=== PATIENT | female | born 1975 | race Caucasian/White ===

== ENCOUNTER 2021-07-01 17:19 | Emergency (ER) | payer BC, SELFPAY ==
[2021-07-01 17:34] VITALS: BP 119/76; PULSE 65; TEMP 36.2; O2SAT 97
--- NOTE | 2021-07-01 18:00 | DI.RAD_ITS ---
Exam(s) XR HAND RT COMPLETE EXAM: XR HAND RT COMPLETE CLINICAL HISTORY: pain dog bite TECHNIQUE: COMPARISON: No exams were available for comparison FINDINGS: Three views were obtained. There is no evidence of acute fracture or dislocation. A tiny defect see n in the tuft of the distal phalanx of the index finger is probably developmental, however clinical c orrelation is requested to exclude any trauma at this site. IMPRESSION: RADIATION DOSE DELIVERED: Total DLP
--- NOTE | 2021-07-01 18:00 | W.ED.GENAD ---
Discharge Plan Disposition Patient Disposition: HOME Discharge Details Clinical Impression: Dog bite Primary Care Provider: Meera Lopez ED Provider: Stevenson Steiner Home Meds and New Rx's Prescriptions: New amoxicillin-pot clavulanate [Augmentin] 500-125 mg tablet 1 tab PO BID Qty: 14 0RF No Action cranberry supp 0RF ginkgo biloba [Ginkoba] 40 mg Tablet 40 mg PO DAILY 0RF Discharge Instructions Instructions: Animal Bite (ED) Additional Instructions: Elevate the hand as much as possible Use the Jose Ramon wrap for support and comfort take Tylenol or Motrin for the pain Take antibiotic as prescribed Medical Decision Making Vrad interpretation of the x-ray was reviewed. The [facility] lesion described does not correlate clinically HPI General Date/Time Provider Initiated Documentation: 07/01/21 17:44. HPI Narrative: 45-year-old lady presents to the emergency room for evaluation of right hand pain secondary to dog bite. 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 Her right hand. She sustained 2 small puncture wounds on the ulnar aspect is neuro aspect. Immediately following the bite she was able to move wrist and allher digits. normal sensation. no bleeding Patient has vaccination Better with ice and immobilization. Patient states she is up-to-date Related Data Home Medications Medication Instructions Recorded Confirmed Cranberry Supp 05/25/16 amoxicillin 500 mg-potassium 1 tab PO BID #14 tab 07/01/21 clavulanate 125 mg tablet (Augmentin) ginkgo biloba 40 mg tablet 40 mg PO DAILY 07/01/21 07/01/21 Previous Rx's Medication Instructions Recorded amoxicillin 500 mg-potassium 1 tab PO BID #14 tab 07/01/21 clavulanate 125 mg tablet (Augmentin) Allergies Allergy/AdvReac Type Severity Reaction Status Date / Time apple AdvReac Intermediate tingling Unverified 07/01/21 17:39 and rash in mouth General Stated Complaint: AnimalBite MARIN: 4 Review of Systems Narrative: MSK see HPI Skin see hpi Neuro see hpi hematolgic see hpi immuno neg PFSH All Active Problems (Updated 07/01/21 @ 19:12 by Stevenson Steiner MD) Dog bite (Acute) Family History Father Diabetes Heart disease Myocardial infarction Mother Essential hypertension Hyperlipidemia Daughter No problems noted. Social History Smoking/Tobacco Use Status: Never Smoking risk assessment performed?: Yes Alcohol Intake: current Alcohol Intake frequency: holidays/special occasions only Drug use: Never Do you feel safe at home: Yes Do you feel safe in your relationship?: Yes Exam Narrative Exam Narrative: AA Ox3 Calmmild discomfort MMMPERLA EOMI RESP normal WOB Rt HAnd - abrasion on the palmar area laterally and medially Digits intact FROM normal senation mild swlling of the palmar area laterally,nocrepitis wrist - intact Course X-ray of the right hand does not reveal any fractures or foreign bodies. X-ray interpreted by me. Repeat eval reveals increased swelling. Dorsal aspect of the hand/palmar aspect. Examination confirms superficial abrasions. Wound will be cleaned. 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/01/21 17:34 PAWSS Have you Been Recently Intoxicated or Drunk Within the Last 30 days?: No Have you Ever Experienced Previous Episodes of Alcohol Withdrawal?: No Have you ever Experienced Withdrawal Seizures?: No Have you ever Experienced Delirium Tremens(DT)s?: No Have you ever undergone Alcohol Rehabilitation Treatment (i.e, inpt ot outpatient treatment programs)?: No Have you ever Experienced Blackouts?: No Have you ever Combined Alcohol with other Downers within the last 90 days?: No Have you ever Combined Alcohol with any other Substance of Abuse during the last 90 days?: No Positive Blood Alcohol level on Presentation? [PCS.BAL]: No Evidence of Increased Autonomic Activity (i.e. HR>120, tremor, sweating, agitation, nausea)?: No Result: 0
[2021-07-01] MEDS: Ibuprofen 800 MG TAB PO (18:10)
--- NOTE | 2021-07-01 19:21 | DI.VRAD_ITS ---
PROCEDURE INFORMATION: Exam: XR Right Hand Exam date and time: 07/01/2021 6:39 PM Age: 45 years old Clinical indication: Injury or trauma; Puncture; Injury date: 07/01/21; Injury details: Dog bite right hand TECHNIQUE: Imaging protocol: XR Right hand. Views: 3 or more views. COMPARISON: No relevant prior studies available. FINDINGS: Bones/joints: There is a notch /cortical irregularity within the distal tuft of the 2nd digit which should be correlated with any concern for trauma or infection to this region. This is best appreciated on series 4, image 1. Soft tissues: No radiopaque foreign body identified. IMPRESSION: 1. There is a notch /cortical irregularity within the distal tuft of the 2nd digit which should be correlated with any concern for trauma or infection to this region. This is best appreciated on series 4, image 1. 2. No radiopaque foreign body identified. Dictated and Authenticated by: Pooja Doyle MD. Ordering:VLADISLAV Gamino MD
--- NOTE | 2021-07-01 19:44 | NUR.NOTE ---
Animal Bite Report Form faxed to [facility] Clerk's office. Nursing Note:
== END 2021-07-01 19:40 | disposition home or self-care (01) ==
PROVIDERS: Emergency Provider Emergency Medicine; PCP Family Medicine
DX: S61.451A Open bite of right hand, initial encounter (principal); W54.0XXA Bitten by dog, initial encounter
CPT/HCPCS: 99283; 73130

== ENCOUNTER → 2021-09-02 11:01 | Outpatient (CLI) | payer BC, SELFPAY ==
--- OUTSIDE RECORDS SUMMARY | 2021-09-02 11:10 | XMS_ITS | Encounter Summary ---
:1975 Author Organization [facility] [place] [address] Care Team Providers Name Role Phone Ulysses Reza MD Primary Care Provider Reason for Visit Reason Onset Date Comments Results 08/31/2015 Encounter Details Date Type Department Care Team Description 08/31/2015 Telephone Obstetrics and Gynecology at [facility] Joe corona [facility] Results [facility] Aruna wills OBSTETRICS & [place] [address] [place] [address] [phone] (Wo rk) Social History Tobacco Use Types Packs/Day Years Used Date Never Smoker Sex Assigned at Date Recorded Not on file documented as of this encounter Miscellaneous Notes Telephone Encounter - Joe Gong LGC - 08/31/2015 12:19 PM EDT Genetic Counseling Telephone Note Kitty Ingram is a 39 y.o. female currently at 16w1d gestation. She opted for amniocentesis on 08/27/2015 due to a at high risk for trisomy 21 based on cell-free DNA screening. I informed her of the following result by phone today: InSight Analysis (aneuploidy FISH): Pattern consistent with trisomy 21. sex: Not disclosed Kitty has made the difficult decision to terminate the . She requests a D&E. I informed her of the following plan: Future Appointments Date Time Provider Visit Type Department 09/02/2015 8:00 AM Barbara Hall, PASSENGER CAR CONDUCTOR Consent/H&P Leb ObGyn 5L 09/02/2015 3:00 PM Jerome Lezama MD Laminaria Leb ObGyn 5L 09/03/2015 TBD Merced Dyson MD D&E Leb Same Day 4W I informed Kitty's referring provider, Carmen Alfred CNM, of the results and plan outlined above. I will follow up with Kitty when the karyotype is available. documented in this encounter Plan of Treatment Not on filedocumented as of this encounter Visit Diagnoses Not on filedocumented in this encounter Care Teams Dry Room Attendant Relationship Specialty Start Date End Date Ulysses Reza MD PCP - General 01/18/10 07/20/16 [address] [place] [address] documented as of this encounter
--- OUTSIDE RECORDS SUMMARY | 2021-09-02 11:10 | XMS_ITS | Clinical Summary ---
:1975 Author Organization [facility] [place] [address] Care Team Providers Name Role Phone Kitty Castellanos APRN Primary Care Provider Allergies No known active allergies Medications Medication Sig Dispensed Refills Start Date End Date Status PNV95/FERROUS FUMARATE/FA Take by mouth. 0 Active ( ORAL)Indications: Abnormal multiple marker screen in fetus DOCOSAHEXANOIC ACID (DHA Take by mouth. 0 Active ORAL) Active Problems Problem Noted Date Fibroid uterus 09/02/2015 Resolved Problems Problem Noted Date Resolved Date anomaly 09/03/2015 09/14/2015 Trisomy 21 of fetus, current 09/02/2015 0 09/14/2015 Family History Medical History Relation Comments Congenital Anomalies Brother absence of the vas deferens, cystic fibrosis carrier Down Syndrome Daughter mosaic trisomy 21 Diabetes Father Heart Disease Father Myocardial Infarction Father Hyperlipidemia Mother Hypertension Mother Thyroid Disease Mother Heart Disease Paternal Grandfather Heart Disease Paternal Grandmother Loss Paternal Grandmother nine second/third t rimester losses Relation Status Comments Brother Alive Daughter Alive Father Mother Alive Paternal Grandfather Paternal Grandmother Son 1 Alive Son 2 Alive Social History Tobacco Use Types Packs/Day Years Used Date Never Smoker Smokeless Tobacco: Never Used Alcohol Use Standard Drinks/Week Comments No 0 (1 standard drink = 0.6 oz pure alcoho l) Sex Assigned at Date Recorded Not on file Last Filed Vital Signs Vital Sign Reading Time Taken Comments Blood Pressure 112/72 04/05/2016 12:23 PM EST Pulse 96 09/03/2015 5:00 PM EDT Temperature 36.6 ??C (97.9 ??F) 09/03/2015 5:00 PM EDT Respiratory Rate 18 09/03/2015 5:00 PM EDT Oxygen Saturation 99% 09/03/2015 5:00 PM EDT Inhaled Oxygen Concentration - - Weight 65.9 kg (145 lb 3.2 oz) 04/05/2016 12:23 PM EST Height 167.6 cm (5' 6) 09/03/2015 9:04 AM EDT Body Mass Index 23.44 09/03/2015 9:04 AM EDT Plan of Treatment Health Maintenance Due Date Last Done Comments Covid-19 Vaccine (#1) 11/03/1980 HIV screen 11/03/1993 Hepatitis C Screening 11/03/1993 Tdap adult 11/03/1994 Tetanus vaccine 11/03/1994 HPV test 11/03/2005 Breast Cancer Share Decision 2015 Needed PAP Smear 05/14/2016 05/15/2011, 11/12/2009, 10/06/2008, Additional history exists Colonoscopy 11/03/2020 Influenza (Flu) vaccine ( - 10/27/2021 Influenza standard series) Insurance Payer Benefit Plan Subscriber ID Effective Dates Phone Address Type / Group [facility] [id number] 2020-Presen [phone] [address] [facility] [address] [facility] [id number] (Work) [id number] Advance Directives Latest Code Status on File Code Status Date Activated Date Inactivated Comments Full Code 09/03/2015 1:53 PM 09/03/2015 10:52 PM Does patient have capacity to make decision: Yes Full Code 09/03/2015 9:56 AM 09/03/2015 1:53 PM Does patient have capacity to make decision: Yes Care Teams Clinic Manager Relationship Specialty Start Date End Date Kitty Castellanos APRN PCP - General Family Medicine 09/23/20 [address] [place] [address]
--- OUTSIDE RECORDS SUMMARY | 2021-09-02 11:10 | XMS_ITS | Encounter Summary ---
:1975 Author Organization [facility] [place] [address] Care Team Providers Name Role Phone Ulysses Reza MD Primary Care Provider Reason for Visit Reason Comments Procedure LAMS Encounter Details Date Type Department Care Team Description 09/02/2015 Procedure visit Obstetrics and Kendy Ornelas Triso my 21 of fetus, current ; Gynecology at [facility] Termination of (fetus) [facility] ID OBSTETRICS & [id number] GYNECOLOGY [phone] [place] [id number] Social History Tobacco Use Types Packs/Day Years Used Date Never Smoker Alcohol Use Standard Drinks/Week Comments No 0 (1 standard drink = 0.6 oz pure alcoho l) Sex Assigned at Date Recorded Not on file documented as of this encounter Last Filed Vital Signs Vital Sign Reading Time Taken Comments Blood Pressure 117/84 09/02/2015 4:30 PM EDT Pulse 72 09/02/2015 4:30 PM EDT Temperature 37 ??C (98.6 ??F) 09/02/2015 4:03 PM EDT Respiratory Rate 12 09/02/2015 4:30 PM EDT Oxygen Saturation 100% 09/02/2015 4:03 PM EDT Inhaled Oxygen Concentration - - Weight - - Height - - Body Mass Index - - documented in this encounter Progress Notes Kendy Ornelas MD - 09/03/2015 12:40 PM EDT I was present and participated during the entire procedure. KENDY ORNELAS MD En Saeed LPN - 09/02/2015 4:36 PM EDT Azithromycin 500mg PO is administered prior to the start of the procedure. Aftercare instructions reviewed with and provided to pt. documented in this encounter Procedure Notes Chastity Negrete MD - 09/02/2015 2:51 PM EDTProcedure(s): INSERT CERVICAL DILATOR PRFM Pre-Procedure Diagnose(s): Trisomy 21 of fetus, current Procedure Note: HPI: Kitty Ingram is a 39 y.o. at 16w3d who presents for laminaria placement prior to a D&C for Trisomy 21. She had difficulty making this decision, but this is what she needs to do for her family. She saw Barbara earlier today for an H&P, please see her note for more details. She has already received rhogam this . She was consented with Barbara Hall. Procedure: Consent was confirmed for laminaria insertion. Brief procedural timeout was held to confirm her identity. Bimanual exam revealed a 15 week size anteverted uterus. The cervix was cleansed with betadine swabs. A paracervical block of 20mL 1% lidocaine was administered at 12, 4 and 8 o'clock. A single-toothed tenaculum was used to grasp the cervix at 12 o'clock. 1x 8 mm laminaria and 2x 4mm dilapan wereinserted without difficulty. Total= 3 dilators, 16 mm. One gauze sponge was inserted to stabilize them. She tolerated the procedure well. Assessment and Plan: Kitty Ingram is a 39 y.o. at 16w3d by LMP who presented for laminaria placement prior toD&C for fetus with Trisomy 21. She was given 500mg Azithromycin for procedural prophylaxis. Her blood type is O negative and she has already received rhogam this . She will return tomorrowfor D & C. No further questions. CHASTITY NEGRETE MD PGY4 09/02/2015 Dr. Kendy Ornelas was present for the entire procedure without any conflicting clinical responsibility documented in this encounter Plan of Treatment Not on filedocumented as of this encounter Visit Diagnoses Diagnosis Trisomy 21 of fetus, current Termination of (fetus) documented in this encounter Administered Medications Inactive Administered Medications - up to 3 most recent administrations Medication Order MAR Action Action Date Dose Rate Site azithromycin (ZITHROMAX) tablet Given 09/02/2015 4:15 PM EDT 500 mg 500 mg 500 mg, Oral, ONCE, 1 dose, On Ivette 09/02/15 at 1615, Routine documented in this encounter Care Teams Compressed Gas Equipment Mechanic Relationship Specialty Start Date End Date Ulysses Reza MD PCP - General 01/18/10 07/20/16 [address] [place] [address] documented as of this encounter
--- OUTSIDE RECORDS SUMMARY | 2021-09-02 11:10 | XMS_ITS | Encounter Summary ---
:1975 Author Organization [facility] [place] [address] Care Team Providers Name Role Phone Ulysses Reza MD Primary Care Provider Encounter Details Date Type Department Care Team Description 08/27/2015 Clinical Support Obstetrics and [facility] OUS ENCOUN[place] [address] Social History Tobacco Use Types Packs/Day Years Used Date Never Smoker Sex Assigned at Date Recorded Not on file documented as of this encounter Progress Notes Caryn Huntley - 08/27/2015 10:45 AM EDT Encounter opened in error and documents scanned in. documented in this encounter Plan of Treatment Not on filedocumented as of this encounter Procedures Procedure Name Priority Date/Time Associated Diagnosis Comme nts LAB SCAN 09/08/2015 12:00 AM EDT documented in this encounter Results SCAN DOC: LAB (09/08/2015 12:00 AM EDT) Narrative This result has an attachment that is no t available. Scanning Provider MEDIA MGR SCAN EXT ORDR/RSLT documented in this encounter Visit Diagnoses Diagnosis DH ERRONEOUS ENCOUNTER documented in this encounter Care Teams Exec. Creative Director Relationship Specialty Start Date End Date Ulysses Reza MD PCP - General 01/18/10 07/20/[address] [place] [address] documented as of this encounter
--- OUTSIDE RECORDS SUMMARY | 2021-09-02 11:10 | XMS_ITS | Encounter Summary ---
:1975 Author Organization [facility] [place] [address] Care Team Providers Name Role Phone Taniya Wright MD Primary Care Provider Encounter Details Date Type Department Care Team Description 10/06/2008 Orders Only Radiology and Cardiology Apd Conversion, Results Results Provider, [address] [place] [id number] Social History Tobacco Use Types Packs/Day Years Used Date Never Assessed Sex Assigned at Date Recorded Not on file documented as of this encounter Plan of Treatment Not on filedocumented as of this encounter Procedures Procedure Name Priority Date/Time Associated Diagnosis Comme nts CYTOPATHOLOGY Routine 10/06/2008 Results for th is GYNECOLOGICAL procedure are in the results section . documented in this encounter Results (ABNORMAL) Cytopathology Gynecological (10/06/2008) [facility] Method Time Signature Medical Secretary Teacher Cytology Please see GEORGIE LOPEZ Final Report Georgie SANTANA legacy report (External Lab) Specimen (Source) Anatomical Location Collection Method / Collectio n Time Received Time / Laterality Volume 10/06/2008 Narrative GEORGIE CAMACHO CONVERSION - 10/12/2008 Please see Georgie Lopez Legacy report Results Provider Apd Conversion PATHOLOGY/CYTOLOGY ORDERABLES Performing Organization Address City/State/ZIP Code Phon e Number GEORGIE LOPEZ CONVERSION [address] [place], [place] [address] GEORGIE LOPEZ CONVERSION documented in this encounter Visit Diagnoses Not on filedocumented in this encounter Care Teams Director Operating Relationship Specialty Start Date End Date Taniya Wright MD PCP - General Family Medicine 06/13/17 09/22/20 [address] [place] [address] documented as of this encounter
--- OUTSIDE RECORDS SUMMARY | 2021-09-02 11:10 | XMS_ITS | Encounter Summary ---
:1975 Author Organization [facility] Address [facility] [address] [place] [address] Care Team Providers Name Role Phone Ulysses Reza MD Primary Care Provider Reason for Visit Reason Comments Advanced Maternal Age [age] years old at [facility] Positive Screen For Down Syndrome Cell-free DNA screen ing ([place]) high risk for trisomy 21 Consultation (Routine) - Closed Specialty Diagnoses / Procedures Referred By Contact Refer red To Contact Genetics / Obstetrics Diagnoses MATERNAL AGE, POSITIVE HARMONY FOR DS, WANTS AMNIO Carmen Alfred [facility] c Death Claim Clerk 5l and Gynecology Procedures FULL SLOT N[facility] [address] [place] [address] [place] [id number] Referral ID Status Reason Start Date Expiration Date Visits Requ ested Visits Authorized [id number] Closed 08/10/2015 08/09/2016 2 2 Encounter Details Date Type Department Care Team Description 08/27/2015 Office Visit Obstetrics and Joe Gong M, Materna l age 35+, multigravida, second trimester; Gynecology at [facility] Abnormal finding on screen; [facility] arun for genetic counseling Drive DR Knapp [place] OBSTETRICS & [phone] GYNECOLOGY [phone] [place] 0375 Social History Tobacco Use Types Packs/Day Years Used Date Never Smoker Sex Assigned at Date Recorded Not on file documented as of this encounter Progress Notes Maribeldelmy Joe Carrillo, [facility] - 08/27/2015 12:00 PM EDT Genetic Counseling Note Kitty Ingram is a 39 y.o. female currently at 15w4d gestation. She was referred to the Diagnosis Program by Carmen Alfred CNM. I met with Kitty for a 45 minute genetic counseling visit. She was accompanied to the visit by her partner, Kojo Matamoros. Chief Complaint Patient presents with ??? Advanced Maternal Age [age] years old at [facility] ??? Positive Screen For Down Syndrome Cell-free DNA screening ([place]) high risk for trisomy 21 Medical History History reviewed. No pertinent past medical history. Family History Problem (# of Occurrences) Relation (Name,Age of Onset) Congenital Anomalies (1) Brother: absence of the vas deferens, cystic fibrosis carrier Diabetes (1) Father Down Syndrome (1) Daughter (Cezar): mosaic trisomy 21 Heart Disease (1) Father Hyperlipidemia (1) Mother Hypertension (1) Mother Myocardial Infarction (1) Father Loss (1) Paternal Grandmother: nine second/third trimester losses A pedigree was obtained and will be scanned into Kitty's electronic medical record. Obstetric History T3 TAB0 SAB1 E0 M0 L3 # Outcome Date GA Lbr Ruy/2nd Weight Sex Delivery Anes PTL Lv 5 Current 4 02/2015 8w0d 3 Term 08/28/07 40w0d 3.629 kg (8 lb) M Vag-Spont None Y Name: Oscar 2 Term 09/05/05 42w0d 3.6 kg (7 lb 15 oz) M Vag-Spont None Y Name: Donavon 1 Term 08/26/03 39w0d 2.977 kg (6 lb 9 oz) F Vag-Spont None N Y Name: Cezar Patient's last menstrual period was 05/10/2015. Estimated Date of Delivery: 02/14/2016 based on menstrual dating and confirmed by ultrasound (10w0d on 07/16/2015). Screening Results Test Result ??? [place] screen High risk for trisomy 21. Low risk for trisomy 18, trisomy 13, and sex chromosome aneuploidy. sex reported but not disclosed. ??? Cystic fibrosis carrier screen Negative per patient (report not available for review). ??? Thalassemia screen MCV within normal limits (90.3 fL) Assessment The [place] test is a type of cell-free DNA screening for aneuploidy. The test report indicates thatthe probability of trisomy 21 is greater than 99%. Since the source of cell-free DNA is actually the placenta, this can be considered an estimate of the probability that trisomy 21 is present in the placenta. If we take into account Kitty's age-related a priori risk along with the performanceof the test, the positive predictive value of this result is at least 93%%. False positive results can be related to factors such as mosaicism (maternal or placental) or a vanishing twin. Kitty daughter has mosaic trisomy 21. Mosaicism can be the result of trisomy rescue of an aneuploidzygote or postzygotic chromosome missegregation. In the former case, the sibling recurrence risk would be increased. Recurrence of trisomy in the same couple could occur for several reasons: (1) chancealone, due to the maternal age-associated risk, (2) parental gonadal mosaicism for trisomy, or (3) factors associated with an increased risk of meiotic error. We discussed the benefits, risks, and limitations of morphology ultrasound and amniocentesis. At the current gestational age, ultrasound examination is expected to be limited, and amniocentesis may not be possible due to chorioamniotic separation (this finding is more common with aneuploidy). Kitty requests amniocentesis. We reviewed the consent form and post-procedural instructions. Amniotic fluid will be sent for Insight analysis (aneuploidy FISH), chromosome analysis, and AFP analysis. Kitty is leaning towards termination if the diagnosis of trisomy 21 is confirmed. We reviewed the options of induction and D&E. At the time of a previous telephone conversation, Kitty thought that she would prefer induction. However, after learning that the risks of both procedures arecomparable, Kitty would rather have a D&E because she would prefer to be asleep. Plan Kitty is scheduled for a morphology ultrasound and maternal- medicine consultation following our visit today. She requests amniocentesis. documented in this encounter Plan of Treatment Not on filedocumented as of this encounter Results Insight Analysis Amniotic Fluid (08/27/2015 11:32 AM EDT) Analysis Performed At Patho logist Time Signature Insight Amn See Note [facility] LABORATORY Comment: Please see scanned report in Ch art Review under the Non- Laboratory Heading. Specimen Anatomical Collection Method Collection Time Receive d Time (Source) Location / / Volume Laterality Amniotic fluid 08/27/2015 11:32 6 specimen AM EDT 12:31 PM EDT (specimen) Narrative This result has an attachment that is no t available. Resulting Agency Comment Spec In Lab E Alfreda Woodward MD BODY FLUIDS AND STOOLS ORDER BILL Performing Organization Address City/[facility] Code Phon e Number [address] Chromosome Analysis Amniotic Fluid (08/27/2015 11:32 AM EDT) Patholo gist Method Time Signature Chromosome Amn See Note [facility] Comment: Please see scanned report in Chart Revie w under the Non- Laboratory Heading. Testing performed at [facility], [address] [facility], [place] [address]. Specimen Anatomical Collection Method Collection Time Receive d Time (Source) Location / / Volume Laterality Amniotic fluid 08/27/2015 11:32 6 specimen AM EDT 12:31 PM EDT (specimen) Narrative This result has an attachment that is no t available. Resulting Agency Comment Spec In Lab E Alfreda Woodward MD BODY FLUIDS AND STOOLS ORDER BILL Performing Organization Address City/[facility] Phon e Number [address] Alpha Fetoprotein, Amniotic Fluid (08/27/2015 11:32 AM EDT) Analysis Performed At Patho logist Time Signature Week Gestation 16 week(s) [facility] AFP Amniotic 7.04 mcg/mL [facility] LABORATORY Mult of Median 0.52 [facility] AFP Amniotic See Note See Note DIANE TAMIR Fluid Interp [facility] Comment: Please see scanned report in Chart Revie w under the Non-DH Laboratory Heading. Testing performed at [facility], [address] [place] [address]. Specimen Anatomical Collection Method Collection Time Receive d Time (Source) Location / / Volume Laterality Amniotic fluid 08/27/2015 11:32 6 specimen AM EDT 12:31 PM EDT (specimen) Narrative This result has an attachment that is no t available. Resulting Agency Comment Spec In Lab E Alfreda Woodward MD BODY FLUIDS AND STOOLS ORDER BILL Performing Organization Address City/State/[place] [address] documented in this encounter Visit Diagnoses Diagnosis Maternal age 35+, multigravida, second t rimester Abnormal finding on screen Abnormal findings on screening Encounter for genetic counseling Genetic counseling documented in this encounter Care Teams Iron Plastic Bullet Maker Relationship Specialty Start Date End Date Ulysses Reza MD PCP - General 01/18/10 07/20/16 [address] [place] [address] documented as of this encounter
--- OUTSIDE RECORDS SUMMARY | 2021-09-02 11:10 | XMS_ITS | Encounter Summary ---
:1975 Author Organization [facility] [address] Care Team Providers Name Role Phone Ulysses Reza MD Primary Care Provider Reason for Visit Reason Comments Ultrasound Consultation (Routine) - Closed Specialty Diagnoses / Procedures Referred By Contact Refer red To Contact Maternal and Diagnoses maternal age, prev preg trisomy 21 LeAnastacia gilmore G, CNM [facility] [employer] 5l Medicine / Obstetrics Procedures u/s mfm, [address] [facility] and Gynecology [facility] [id number] [place] [phone] Phone: Fax: Referral ID Status Reason Start Date Expiration Date Visits Requ ested Visits Authorized [id number] Closed 03/30/2016 03/30/2017 1 1 Encounter Details Date Type Department Care Team Description 04/05/2016 Procedure visit Obstetrics and Dipti Arias, Kanga l US; [place] [facility] Previous complicated by chromo somal abnormality, antepartum, second trimester; [facility] AMA (adva nced maternal age) multigravida 35+, second trimester; [facility] Echogenic focus of bowel of fetus affect ing antepartum care of mother [place], [place] OBSTETRICS & [phone] GYNECOLOGY [phone] [place], [place] [address] Social History Tobacco Use Types Packs/Day Years Used Date Never Smoker Alcohol Use Standard Drinks/Week Comments No 0 (1 standard drink = 0.6 oz pure alcoho l) Sex Assigned at Date Recorded Not on file documented as of this encounter Last Filed Vital Signs Vital Sign Reading Time Taken Comments Blood Pressure 112/72 04/05/2016 12:23 PM EST Pulse - - Temperature - - Respiratory Rate - - Oxygen Saturation - - Inhaled Oxygen Concentration - - Weight 65.9 kg (145 lb 3.2 oz) 04/05/2016 12:23 PM EST Height - - Body Mass Index 23.44 09/03/2015 9:04 AM EDT documented in this encounter Progress Notes Dpiti Arias MD - 04/05/2016 1:30 PM EST Maternal Medicine Consult Note Chelly Ingram is a 40 y.o. with an AMANUEL of 09/04/16 who is at 18w2d gestation by menstrual dates and ultrasound. She is seen in consultation at the request of Anastacia Rhodes CNM for evaluation ofadvanced maternal age and prior complicated by trisomy 21. She was seen today for maternal- medicine consultation and ultrasound evaluation. The patient reports that this has been uncomplicated to date. She has not had bleeding. The patient had cell free DNA testing which was low risk for trisomy 21, 18 and 13. Her records indicated that she previously had cystic fibrosis screening which was negative. Record Review No additional issues Past Medical History Diagnosis Date ??? Other abnormal Papanicolaou smear of cervix and cervical HPV(795.09) 2010 +HPV; colpo negative ??? Varicella Past Surgical History Procedure Laterality Date ??? Tympanostomy tube placement as a child ??? Pro induced abortn by dil/evac N/A 09/03/2015 INDUCED , DILATION & EVACUATION performed by Merced Miller MD at [facility] OR Obstetric History T3 TAB1 SAB1 E0 M0 L3 # Outcome Date GA Lbr Ruy/2nd Weight Sex Delivery Anes PTL Lv 6 Current 5 TAB 09/03/15 16w4d TAB 4 SAB 02/2015 8w0d 3 Term 08/28/07 40w0d 3.629 kg (8 lb) M Vag-Spont None Y Name: Oscar Clement Term 09/05/05 42w0d 3.6 kg (7 lb 15 oz) M Vag-Spont None Y Name: Donavon Cooper Term 08/26/03 39w0d 2.977 kg (6 lb 9 oz) F Vag-Spont None N Y Name: Cezar Gutierres: Is employed as a community coordinator for high school. Denies illicit substance use or alcohol No tobacco use Current Outpatient Prescriptions Medication Sig Dispense Refill ??? DOCOSAHEXANOIC ACID (DHA ORAL) Take by mouth. ??? PNV95/FERROUS FUMARATE/FA ( ORAL) Take by mouth. No current facility-administered medications for this visit. No Known Allergies Review of Systems Constitutional: generally well Contractions: none Leaking: none Bleeding: none Ultrasound Growth appropriate for gestational age EGA 17 6/7 weeks Amniotic fluid volume normal Placenta anterior Presentation variable Morphology: There is a segment of echogenic bowel. No other structural abnormality or marker for aneuploidy. Physical Exam Vitals: 04/05/16 1223 BP: 112/72 General: alert, well appearing, in no apparent distress HEENT: normocephalic, atraumatic Extremities: normal Neurologic:alert, oriented, normal speech Abdomen: abdomen is soft without significant tenderness Psychiatric: affect is appropriate. Uterine Size: consistent with dates Assessment and Recommendations: 40 y.o. at 18w3d weeks gestation. Previous history of with trisomy 21 and another child with mosaic trisomy 21. Her risk foraneuploidy is very low based on the [place] screen. There is a segment of echogenic bowel which is aminor marker for aneuploidy and a manifestation of cystic fibrosis and congenital infection including cytomegalovirus and toxoplasma. Her risk for aneuploidy and cystic fibrosis should be low based on genetic screening. We will try to find the cystic fibrosis screen result to see the number of mutations screened for. I explained the manifestations of congenital cytomegalovirus and toxoplasmosis. I offered serology screening. I explained that serology can sometimes be difficult to interpret. I also offered amniocentesis for PCR for these infections. Today, she opted to proceed with serology testing for CMV and toxoplasma. We will contact her with these results. I appreciate the opportunity to be involved in this patient's care and am available if further questions should arise. Dipti Arias MD 04/06/2016 Cc: Anastacia Rhodes CNM Addendum: We would like to her back at approximately 32 weeks to reevaluate the bowel. We will call her. ERIC documented in this encounter Miscellaneous Notes Addendum Note - Dipti Arias MD - 04/07/2016 3:04 PM EST Addended by: DIPTI ARIAS on: 04/07/2016 03:04 PM Modules accepted: Orders documented in this encounter Plan of Treatment Not on filedocumented as of this encounter Procedures Procedure Name Priority Date/Time Associated Comments Diagnosis US OB FOLLOW UP Routine 07/12/2016 3:45 PM Echogenic focus of Results for this EDT bowel of fetus procedure are in affecting the results antepartum care of section. mother CMV ANTIBODY, IGM Routine 04/05/2016 2:48 PM Abnormal pregnanc y Results for this EST US procedure are i n the results section. TOXOPLASMA ANTIBODY, Routine 04/05/2016 2:48 PM Abnormal pregn husam Results for this IGM EST US procedure are i n the results section. TOXOPLASMA ANTIBODY, Routine 04/05/2016 2:48 PM Abnormal pregn husam Results for this IGG EST US procedure are i n the results section. CMV ANTIBODY, IGG Routine 04/05/2016 2:48 PM Abnormal pregnanc y Results for this EST US procedure are i n the results section. documented in this encounter Results US OB Follow Up Evaluation (07/12/2016 3:45 PM EDT) Anatomical Region Laterality Modality Pelvis, Abdomen Ultrasound Specimen (Source) Anatomical Collection Method Collection Time Re ceived Time Location / / Volume Laterality 07/12/2016 3:25 PM EDT Impressions 07/12/2016 4:40 PM EDT 3rd Trimester Summary Single intrauterine with a ge stational age of 32w 2d based on LMP ??(11/29/15) Composite age based on the current ultr asound alone is 33w 2d. Estimated weight corresponds to t he 90th percentile for 32w 2d. Current growth parameters are consisten t with prior dating indicating normal growth. Amniotic fluid volume is Normal, JANIE = 11.24 cm, MVP = 4.49 cm Anatomical survey is limited due to the late gestational age, however appears within normal limi ts. I ??viewed the images and agree with th jd above interpretation. ? Jd Woodward MD Electronically Signed Final Report ?? 04:40 pm Narrative 07/12/2016 4:40 PM EDT OBSTETRICS REPORT ?(Signed Final 07/12/2016 04:40 pm) PATIENT INFO: ID #: ? [id number] ?: ??[birth year] (40 yrs) Name: ? CHELLY Carrillo ? Visit Date: 07/12/2016 03:25 pm ? LOLA PERFORMED BY: Performed By: ? Nette Gallardo RDMS Attending: ?Jd Woodward MD ? ?Alfreda Referred By: ?ANASTACIA RHODES CNM Location: ? [facility] SERVICE(S) PROVIDED: ??UOBFOL - Efw - Growth - Whitney - I [id number] ? [id number] INDICATIONS: ??Echogenic bowel, Referred by Anastacia Rivera leonel OB HISTORY: Height: ? 5'6 ?Weight: ?? 1 38 ?BMI: ??22.27 EVALUATION: Num Of Fetuses: ? 1 Heart ? 130 Rate(bpm): Cardiac Activity: ?? Observed, normal r hythm Presentation: ? Cephalic Placenta: ? Anterior P. Cord Insertion: ??Within Normal Limi ts Amniotic Fluid JANIE FV: ?Normal JANIE Sum: ? 11.24 ?? cm ? Larg Pckt: ?4.49 ??cm RUQ: ?? 3.87 ?cm ?LUQ: ?? 4.49 ?? cm RLQ: ?? 1.81 ?cm ?LLQ: ?? 1.07 ?? cm --------- BIOMETRY: --------- BPD: ?80.4 ??mm ? G.Age: ?? 32w 2d ?42 ??% OFD: ? 105.5 ??mm HC: ?296.1 ??mm ? G.Age: ?? 32w 5d ?24 ??% AC: ?299.6 ??mm ? G.Age: ?? 34w 0d ?89 ??% FL: ? 65.8 ??mm ? G.Age: ?? 33w 6d ?79 ??% HUM: ?56.3 ??mm ? G.Age: ?? 32w 5d ?61 ??% CER: ?42.7 ??mm ? G.Age: ?? 36w 5d ?> 95 ??% NB: ?11.54 ??mm LV: ?8.0 ??mm CM: ?7.4 ??mm CI: ?76.2 ??% ? 70 - 86 FL/HC: ? 22.2 ??% ? 19.1 - 21.3 HC/AC: ? 0.99 ?0.96 - 1.17 FL/BPD: ?81.8 ??% ? 71 - 87 FL/AC: ? 22.0 ??% ? 20 - 24 Est. FW: ?2240 ?? gm ?? 4 lb 15 oz ? 90 ??% GESTATIONAL AGE: LMP: ? 32w 2d ?Date : ??11/29/15 ? AMANUEL: ?? 09/04/16 U/S Today: ? 33w 2d ?AMANUEL: ?? 08/28/16 Best: ?32w 2d ?? Det. By: ??LMP ??(11/29/15) ?AMANUEL: ?? 09/04/16 -------- ANATOMY: -------- Cranium: ?Visualized Cavum: ?Visualized Ventricles: ? Visualized Choroid Plexus: ? Visualized Cerebellum: ? Visualized Posterior Fossa: ?Visualized Nuchal Fold: ?Not evaluated a t this gestational age Face: ? Limited view s Heart: ?4-chamber vi ew appears normal RVOT: ? Not visualiz ed due to late gestational a LVOT: ? Not visualiz ed due to late gestational a Diaphragm: ?Visualized Stomach: ?Visualized Abdomen: ?Within Normal Limits Abdominal Wall: ? Not visualized du e to late gestational a Cord Vessels: ? 3-vessels- WNL Kidneys: ?Visualized Bladder: ?Visualized Spine: ?Limited view s Upper ? Limited view s Extremities: Lower ? Limited view s Extremities: CERVIX UTERUS ADNEXA: Left Ovary Not visualized Right Ovary Not visualized Procedure Note Jd Woodward MD - 07/12/2016For matting of this note might be different from the original. OBSTETRICS REPORT (Signed Final 017 04:40 pm) PATIENT INFO: ID #: [id number] : [birth year] (40 y rs) Name: CHELLY Carrillo Visit Date: 07/12/2016 0 3:25 pm LOLA PERFORMED BY: Performed By: Nette Gallardo RDMS Attending: Jd Woodward MD Referred By: ANASTACIA RHODSE CNM Location: [facility] SERVICE(S) PROVIDED: UOBFOL - Efw - Growth - Whitney - G [id number] INDICATIONS: Echogenic bowel, Referred by Anastacia Kraft g OB HISTORY: Height: 5'6 Weight: 138 BMI: 22.27 EVALUATION: Num Of Fetuses: 1 Heart 130 Rate(bpm): Cardiac Activity: Observed, normal rhyt hm Presentation: Cephalic Placenta: Anterior P. Cord Insertion: Within Normal Limits Amniotic Fluid JANIE FV: Normal JANIE Sum: 11.24 cm Larg Pckt: 4.49 cm RUQ: 3.87 cm LUQ: 4.49 cm RLQ: 1.81 cm LLQ: 1.07 cm --------- BIOMETRY: --------- BPD: 80.4 mm G.Age: 32w 2d 42 % OFD: 105.5 mm HC: 296.1 mm G.Age: 32w 5d 24 % AC: 299.6 mm G.Age: 34w 0d 89 % FL: 65.8 mm G.Age: 33w 6d 79 % HUM: 56.3 mm G.Age: 32w 5d 61 % CER: 42.7 mm G.Age: 36w 5d > 95 % NB: 11.54 mm LV: 8.0 mm CM: 7.4 mm CI: 76.2 % 70 - 86 FL/HC: 22.2 % 19.1 - 21.3 HC/AC: 0.99 0.96 - 1.17 FL/BPD: 81.8 % 71 - 87 FL/AC: 22.0 % 20 - 24 Est. FW: 2240 gm 4 lb 15 oz 90 % GESTATIONAL AGE: LMP: 32w 2d Date: 11/29/15 AMANUEL: 7 U/S Today: 33w 2d AMANUEL: 08/28/16 Best: 32w 2d Det. By: LMP (11/29/15) ED -------- ANATOMY: -------- Cranium: Visualized Cavum: Visualized Ventricles: Visualized Choroid Plexus: Visualized Cerebellum: Visualized Posterior Fossa: Visualized Nuchal Fold: Not evaluated at this gest ational age Face: Limited views Heart: 4-chamber view appears normal RVOT: Not visualized due to late gestat ional a LVOT: Not visualized due to late gestat ional a Diaphragm: Visualized Stomach: Visualized Abdomen: Within Normal Limits Abdominal Wall: Not visualized due to l ate gestational a Cord Vessels: 3-vessels- WNL Kidneys: Visualized Bladder: Visualized Spine: Limited views Upper Limited views Extremities: Lower Limited views Extremities: CERVIX UTERUS ADNEXA: Left Ovary Not visualized Right Ovary Not visualized IMPRESSION 3rd Trimester Summary Single intrauterine with a ge stational age of 32w 2d based on LMP (11/29/15) Composite age based on the current ultr asound alone is 33w 2d. Estimated weight corresponds to t he 90th percentile for 32w 2d. Current growth parameters are consisten t with prior dating indicating normal growth. Amniotic fluid volume is Normal, JANIE = 11.24 cm, MVP = 4.49 cm Anatomical survey is limited due to the late gestational age, however appears within normal limi ts. I viewed the images and agree with the above interpretation. Jd Woodward MD Electronically Signed Final Report 07/12 04:40 pm Dipti Arias MD IMG US OB ORDERABLES Toxoplasma Antibody, IgM (04/05/2016 2:48 PM EST) athologist Signature Toxoplasma IgM Neg Neg [facility] Specimen Anatomical Collection Method Collection Time Receive d Time (Source) Location / / Volume Laterality Blood specimen 04/05/2016 2:48 PM 017 8:49 (specimen) EST AM EST Resulting Agency Comment Spec In Lab Dipti Arais MD CHEMISTRY ORDERABLES Performing Organization Address City/[facility] [place] [address] Toxoplasma Antibody, IgG (04/05/2016 2:48 PM EST) P athologist Signature Toxoplasma IgG Neg Neg [facility] Specimen Anatomical Collection Method Collection Time Receive d Time (Source) Location / / Volume Laterality Blood specimen 04/05/2016 2:48 PM 017 8:49 (specimen) EST AM EST Resulting Agency Comment Spec In Lab Dipti Arias MD IMMUNOLOGY ORDERABLES Performing Organization Address [facility] [place] [address] CMV Antibody, IgM (04/05/2016 2:48 PM EST) P athologist Signature CMV IgM Neg Neg [facility] Specimen Anatomical Collection Method Collection Time Receive d Time (Source) Location / / Volume Laterality Blood specimen 04/05/2016 2:48 PM 017 8:49 (specimen) EST AM EST Resulting Agency Comment Spec In Lab Dipti Arias MD IMMUNOLOGY ORDERABLES Performing Organization Address City/[facility]/ZIP [facility] [place] [address] CMV Antibody, IgG (04/05/2016 2:48 PM EST) P athologist Signature CMV IgG Neg Neg [facility] Specimen Anatomical Collection Method Collection Time Receive d Time (Source) Location / / Volume Laterality Blood specimen 04/05/2016 2:48 PM 017 8:49 (specimen) EST AM EST Resulting Agency Comment Spec In Lab Dipti Arias MD IMMUNOLOGY ORDERABLES Performing Organization Address City/[facility] [place] [address] documented in this encounter Visit Diagnoses Diagnosis Abnormal US Abnormal findings on screening Previous complicated by chromo somal abnormality, antepartum, second trimester AMA (advanced maternal age) multigravida 35+, second trimester Echogenic focus of bowel of fetus affect ing antepartum care of mother documented in this encounter Care Teams [employer] Management System Operator Relationship Specialty Start Date End Date Ulysses Reza MD PCP - General 01/18/10 07/20/16 [address] [place] [address] documented as of this encounter
--- OUTSIDE RECORDS SUMMARY | 2021-09-02 11:10 | XMS_ITS | Encounter Summary ---
:1975 Author Organization [facility] [place] [address] Care Team Providers Name Role Phone Ulysses Reza MD Primary Care Provider Encounter Details Date Type Department Care Team Description 04/05/2016 Hospital Encounter Radiology at [facility] Pschirrer, E Previous [facility] MD Alfreda complicated by [place], [place] [address] [place], [id number] OBSTETRICS & antepartum, second [phone] [place] [address] Social History Tobacco Use Types Packs/Day Years Used Date Never Smoker Alcohol Use Standard Drinks/Week Comments No 0 (1 standard drink = 0.6 oz pure alcoho l) Sex Assigned at Date Recorded Not on file documented as of this encounter Medications at Time of Discharge Medication Sig Dispensed Refills Start Date End Date DOCOSAHEXANOIC ACID (DHA Take by mouth. 0 ORAL) PNV95/FERROUS FUMARATE/FA Take by mouth. 0 ( ORAL)Indications: Abnormal multiple marker screen in fetus documented as of this encounter Plan of Treatment Not on filedocumented as of this encounter Procedures Procedure Name Priority Date/Time Associated Diagnosis Comme nts US OB DETAILED Routine 04/05/2016 1:45 PM Previous R esults for this MORPHOLOGY EST complicated by procedure are in chromosomal the results abnormality, section. antepartum, second trimester documented in this encounter Results US OB Detailed Morphology (04/05/2016 1:45 PM EST) Anatomical Region Laterality Modality Pelvis, Abdomen Ultrasound Specimen (Source) Anatomical Collection Method Collection Time Re ceived Time Location / / Volume Laterality 04/05/2016 12:48 PM EST Impressions 04/06/2016 7:24 AM EST 2nd Trimester - Detailed Morphology - S ummary Single intrauterine with a ge stational age of 18w 2d based on LMP ??(11/29/15). Composite age based on the current ultr asound alone is 17w 6d. Current growth parameters are consisten t with prior dating indicating normal growth. Amniotic fluid volume is normal. Detailed anatomic evaluation was performed. There is a segment of echogenic bowel. ?Gerardo Negro Electronically Signed Final Report ?? 07:24 am Narrative 04/06/2016 7:24 AM EST OBSTETRICS REPORT ?(Signed Final 04/06/2016 07:24 am) PATIENT INFO: ID #: ? [id number] ?: ??[birth year] (40 yrs) Name: ? CHELLY Carrillo ? Visit Date: 04/05/2016 12:48 pm ? LOLA PERFORMED BY: Performed By: ? Rebecca Cooley RDMS Attending: ?Gilbert SCHWARTZ, Dipti Rossi Referred By: ?NATY PELAYO [facility] Location: ? [place] SERVICE(S) PROVIDED: ??UMFM - Detailed Morphology - [id number] ? [id number] INDICATIONS: ??prev pregnanacy tri 21 OB HISTORY: Height: ? 5'6 ?Weight: ?? 1 38 ?BMI: ??22.27 EVALUATION: Num Of Fetuses: ? 1 Heart ? 147 Rate(bpm): Cardiac Activity: ?? Observed, normal r hythm Presentation: ? Variable Placenta: ? Anterior P. Cord Insertion: ??Within Normal Limi ts Amniotic Fluid JANIE FV: ?Normal --------- BIOMETRY: --------- BPD: ?39.7 ??mm ? G.Age: ?? 18w 0d OFD: ?52.2 ??mm HC: ?147.2 ??mm ? G.Age: ?? 17w 6d AC: ?124.2 ??mm ? G.Age: ?? 18w 0d FL: ? 25.4 ??mm ? G.Age: ?? 17w 5d HUM: ?26.7 ??mm ? G.Age: ?? 18w 3d CER: ?18.7 ??mm ? G.Age: ?? 18w 2d NFT: ? 2.8 ??mm LV: ?5.2 ??mm CM: ?3.7 ??mm CI: ?76.1 ??% ? 70 - 86 FL/HC: ? 17.3 ??% ? 15.8 - 18 HC/AC: ? 1.19 ?1.07 - 1.29 FL/BPD: ?64.0 ??% FL/AC: ? 20.5 ??% ? 20 - 24 Est. FW: ? 214 ?? gm ? 0 lb 8 o z GESTATIONAL AGE: LMP: ? 18w 2d ?Date : ??11/29/15 ? AMANUEL: ?? 09/04/16 U/S Today: ? 17w 6d ?AMANUEL: ?? 09/07/16 Best: ?18w 2d ?? Det. By: ??LMP ??(11/29/15) ?AMANUEL: ?? 09/04/16 TARGETED ANATOMY: Central Nervous System Calvarium: ?Within Norm al Limits Intracranial: ? Within Normal Limits Cavum: ?Within Angella l Limits Lat. Ventricles: ?Within Normal Limits Cerebellum: ? Within Angella l Limits Choroid Plexus: ? Within Normal Limits Cisterna Magna: ? Within Normal Limits Spine Cervical: ? Visualized Thoracic: ? Visualized Lumbar: ? Visualized Sacral: ? Visualized Head/Neck Face: ? Within No rmal Limits Lips: ? Within No rmal Limits Nuchal Fold: ?Within Angella l Limits Eyes: ? Normal ?? lens / orbits Neck: ? Within No rmal Limits Profile: ?Visualized Thorax Thoracic Contour: ? Ribs appear nor mal Lungs: ?Visualize d Four Chamber: ? Within Normal Limits Cardiac Motion: ? Normal Rhythm R Outflow Tract: ?Visualized L Outflow Tract: ?Visualized Aortic Arch: ?Visualized Cardiac [place]: ? Visualized 3 Vessel View: ?Visualized Diaphragm: ?Visualized Abdomen Ventral Wall: ? Visualized Stomach: ?Visualized Situs: ?Normal Liver: ?Visualize d Lt Kidney: ?Visualized Rt Kidney: ?Visualized Bladder: ?Visualized Bowel: ?Echogenic Extremities Lt Humerus: ? Within Nomal Limits Rt Humerus: ? Within Angella l Limits Lt Forearm: ? Within Angella l Limits Rt Forearm: ? Within Angella l Limits Lt Hand: ?Within Nor mal Limits Rt Hand: ?Within Nor mal Limits Lt Femur: ? Within Norm al Limits Rt Femur: ? Within Norm al Limits Lt Lower Leg: ? Within Normal Limits Rt Lower Leg: ? Within Normal Limits Lt Foot: ?Visualized Rt Foot: ?Visualized Other Umbilical Cord: ? 3 vessel cord Cord Insertion: ? WIthin Normal Limits Comment: ? Nasal Bone: ??Visuali zed CERVIX UTERUS ADNEXA: Left Ovary Not visualized Right Ovary Not visualized Procedure Note Dipti Hunt MD - 04/06/2016Formattin g of this note might be different from the original. OBSTETRICS REPORT (Signed Final 017 07:24 am) PATIENT INFO: ID #: [id number] : [birth year] (40 y rs) Name: CHELLY Carrillo Visit Date: 04/05/2016 1 2:48 pm LOLA PERFORMED BY: Performed By: Rebecca Cooley RDMS Attending: Dipti Hunt MD Referred By: NATY PELAYO [facility] Location: [place] SERVICE(S) PROVIDED: FM - Detailed Morphology - [id number] INDICATIONS: prev pregnanacy tri 21 OB HISTORY: Height: 5'6 Weight: 138 BMI: 22.27 EVALUATION: Num Of Fetuses: 1 Heart 147 Rate(bpm): Cardiac Activity: Observed, normal rhyt hm Presentation: Variable Placenta: Anterior P. Cord Insertion: Within Normal Limits Amniotic Fluid JANIE FV: Normal --------- BIOMETRY: --------- BPD: 39.7 mm G.Age: 18w 0d OFD: 52.2 mm HC: 147.2 mm G.Age: 17w 6d AC: 124.2 mm G.Age: 18w 0d FL: 25.4 mm G.Age: 17w 5d HUM: 26.7 mm G.Age: 18w 3d CER: 18.7 mm G.Age: 18w 2d NFT: 2.8 mm LV: 5.2 mm CM: 3.7 mm CI: 76.1 % 70 - 86 FL/HC: 17.3 % 15.8 - 18 HC/AC: 1.19 1.07 - 1.29 FL/BPD: 64.0 % FL/AC: 20.5 % 20 - 24 Est. FW: 214 gm 0 lb 8 oz GESTATIONAL AGE: LMP: 18w 2d Date: 11/29/15 AMANUEL: 7 U/S Today: 17w 6d AMANUEL: 09/07/16 Best: 18w 2d Det. By: LMP (11/29/15) ED TARGETED ANATOMY: Central Nervous System Calvarium: Within Normal Limits Intracranial: Within Normal Limits Cavum: Within Normal Limits Lat. Ventricles: Within Normal Limits Cerebellum: Within Normal Limits Choroid Plexus: Within Normal Limits Cisterna Magna: Within Normal Limits Spine Cervical: Visualized Thoracic: Visualized Lumbar: Visualized Sacral: Visualized Head/Neck Face: Within Normal Limits Lips: Within Normal Limits Nuchal Fold: Within Normal Limits Eyes: Normal lens / orbits Neck: Within Normal Limits Profile: Visualized Thorax Thoracic Contour: Ribs appear normal Lungs: Visualized Four Chamber: Within Normal Limits Cardiac Motion: Normal Rhythm R Outflow Tract: Visualized L Outflow Tract: Visualized Aortic Arch: Visualized Cardiac [place]: Visualized 3 Vessel View: Visualized Diaphragm: Visualized Abdomen Ventral Wall: Visualized Stomach: Visualized Situs: Normal Liver: Visualized Lt Kidney: Visualized Rt Kidney: Visualized Bladder: Visualized Bowel: Echogenic Extremities Lt Humerus: Within Nomal Limits Rt Humerus: Within Normal Limits Lt Forearm: Within Normal Limits Rt Forearm: Within Normal Limits Lt Hand: Within Normal Limits Rt Hand: Within Normal Limits Lt Femur: Within Normal Limits Rt Femur: Within Normal Limits Lt Lower Leg: Within Normal Limits Rt Lower Leg: Within Normal Limits Lt Foot: Visualized Rt Foot: Visualized Other Umbilical Cord: 3 vessel cord Cord Insertion: WIthin Normal Limits Comment: Nasal Bone: Visualized CERVIX UTERUS ADNEXA: Left Ovary Not visualized Right Ovary Not visualized IMPRESSION 2nd Trimester - Detailed Morphology - S ummary Single intrauterine with a ge stational age of 18w 2d based on LMP (11/29/15). Composite age based on the current ultr asound alone is 17w 6d. Current growth parameters are consisten t with prior dating indicating normal growth. Amniotic fluid volume is normal. Detailed anatomic evaluation was performed. There is a segment of echogenic bowel. Dipti Hunt MD Electronically Signed Final Report 04/06 07:24 am E Alfreda Woodward MD IMG US OB ORDERABLES documented in this encounter Visit Diagnoses Diagnosis Previous complicated by chromo somal abnormality, antepartum, second trimester documented in this encounter Care Teams Flask Fitter Relationship Specialty Start Date End Date Ulysses Reza MD PCP - General 01/18/10 07/20/16 [address] [place] [address] documented as of this encounter
--- OUTSIDE RECORDS SUMMARY | 2021-09-02 11:10 | XMS_ITS | Encounter Summary ---
:1975 Author Organization [facility] [place] [address] Care Team Providers Name Role Phone Ulysses Reza MD Primary Care Provider Reason for Visit Reason Onset Date Comments Results 04/06/2016 Encounter Details Date Type Department Care Team Description 04/06/2016 Telephone Obstetrics and Gynecology at [facility] Joe corona LGC Results [facility] Aruna wills OBSTETRICS & [place] [address] [place] [address] [phone] (Wo rk) Social History Tobacco Use Types Packs/Day Years Used Date Never Smoker Alcohol Use Standard Drinks/Week Comments No 0 (1 standard drink = 0.6 oz pure alcoho l) Sex Assigned at Date Recorded Not on file documented as of this encounter Miscellaneous Notes Telephone Encounter - Joe Gong LGC - 04/06/2016 6:14 PM EST Genetic Counseling Telephone Note Chelly Ingram is a 40 y.o. female currently at 18w3d gestation with the sonographic finding of echogenic bowel. I informed her of the following results today: Procedure visit on 04/05/2016 Component Date Value Ref Range Status ??? CMV IgG 04/05/2016 Neg Neg Final ??? CMV IgM 04/05/2016 Neg Neg Final ??? Toxoplasma IgG 04/05/2016 Neg Neg Final ??? Toxoplasma IgM 04/05/2016 Neg Neg Final Bowel echogenicity equal to or greater than that of bone is seen in less than 1% of second-trimesterfetuses. Most fetuses with echogenic bowel in the second trimester have a normal outcome. We reviewed the association of echogenic bowel with the following conditions: ?? Aneuploidy (particularly trisomy 21): Chelly had cell-free DNA screening indicating a low risk for common trisomies. We reviewed the option of amniocentesis for chromosome analysis, which she declines. ?? Cystic fibrosis: Chelly has had negative cystic fibrosis carrier screening in the past (her brother is a known carrier), although we do not have a copy of the report. Chelly has requested to have the results sent to her PCP and to [facility]. I explained the limitations of cystic fibrosis carrier screening and that a negative result greatly reduces, but does not eliminate, her carrierrisk. We discussed the options for further cystic fibrosis carrier screening for Chelly and/or her . They will discuss these options but are leaning away from further testing at this time. ?? Congenital infection: There is no evidence of past or recent exposure to cytomegalovirus or toxoplasma based on the results listed above. ?? Congenital malformations of the bowel: A follow-up ultrasound in the third trimester is indicatedto assess growth and to watch for the development of potential bowel abnormalities. ?? Early-onset growth restriction: Yesterday's ultrasound revealed no evidence of growth restriction. ?? Intra-amniotic bleeding: Chelly reports no history of vaginal bleeding. There has been no evidence of bleeding by ultrasound. We will contact Chelly to schedule a follow-up ultrasound as the time gets closer. documented in this encounter Plan of Treatment Not on filedocumented as of this encounter Results US OB Follow Up [...] I ??viewed the images and agree with javon miles above interpretation. ? Franck Woodward MD Electronically Signed Final Report ?? 04:40 pm Narrative 07/12/2016 4:40 PM EDT OBSTETRICS REPORT ?(Signed Final 07/12/2016 04:40 pm) PATIENT INFO: ID #: ? [id number] ?: ??[birth year] (40 yrs) Name: ? CHELLY Carrillo ? Visit Date: 07/12/2016 03:25 pm ? LOLA PERFORMED BY: Performed By: ? Nette Gallardo RDMS Attending: ?Franck Woodward MD ? ?Alfreda Referred By: ?ANASTACIA PELAYO [facility] Location: ? [place] SERVICE(S) PROVIDED: ??UOBFOL - Efw - Growth - [place] - I [id number] ? [id number] INDICATIONS: ??Echogenic bowel, Referred by Anastacia Rivera [...] visualized Right Ovary Not visualized Procedure Note Franck Woodward MD - 07/12/2016For matting of this note might be different from the original. OBSTETRICS REPORT (Signed Final 017 04:40 pm) PATIENT INFO: ID #: [id number] : 75 (40 y rs) Name: CHELLY M Visit Date: 07/12/2016 0 3:25 pm LOLA PERFORMED BY: Performed By: Nette Gallardo RDMS Attending: Franck Woodward MD Referred By: ANASTACIA PELAYO CNM Location: [place] SERVICE(S) PROVIDED: UOBFOL - Efw - Growth - [place] - [facility] 1703 [id number] INDICATIONS: Echogenic bowel, Referred by Anastacia jiménez OB HISTORY: Height: 5'6 Weight: 138 BMI: [...] images and agree with the above interpretation. Franck Woodward MD Electronically Signed Final Report 07/12 04:40 pm Dipti Hunt MD IMG US OB ORDERABLES documented in this encounter Visit Diagnoses Diagnosis Echogenic focus of bowel of fetus affect ing antepartum care of mother documented in this encounter Care Teams Precision Honing Machine Operator Relationship Specialty Start Date End Date Ulysses Reza MD PCP - General 01/18/10 07/20/16 [address] [place] [address] documented as of this encounter
--- OUTSIDE RECORDS SUMMARY | 2021-09-02 11:10 | XMS_ITS | Encounter Summary ---
:1975 Author Organization [facility] [place] [address] Care Team Providers Name Role Phone Ulysses Reza MD Primary Care Provider Encounter Details Date Type Department Care Team Description 09/02/2015 Office Visit Obstetrics and [place], Preop exami nation Gynecology at [facility] Barbara Carrillo APRN (Primary Dx) [facility] [address] [place] OBSTETRICS & [id number] GYNECOLOGY [phone] [place], [place] [address] Social History Tobacco Use Types Packs/Day Years Used Date Never Smoker Alcohol Use Standard Drinks/Week Comments No 0 (1 standard drink = 0.6 oz pure alcoho l) Sex Assigned at Date Recorded Not on file documented as of this encounter Last Filed Vital Signs Vital Sign Reading Time Taken Comments Blood Pressure 124/67 09/02/2015 8:07 AM EDT Pulse 84 09/02/2015 8:07 AM EDT Temperature 36.8 ??C (98.2 ??F) 09/02/2015 8:07 AM EDT Respiratory Rate - - Oxygen Saturation - - Inhaled Oxygen Concentration - - Weight 69.8 kg (153 lb 14.4 oz) 09/02/2015 8:07 AM EDT Height 167.6 cm (5' 6) 09/02/2015 8:07 AM EDT Body Mass Index 24.84 09/02/2015 8:07 AM EDT documented in this encounter Progress Notes Barbara Kan APRN - 09/02/2015 8:07 AM EDT GYNECOLOGY PRE-OPERATIVE ASSESSMENT Date of Visit: 09/02/2015 Planned Procedure: D&E Planned Surgery Date: 09/03/2015 Indications/Pre-op Diagnosis: Trisomy 21 Referred from: Carmen Alfred CNM with [facility] in [place], [place]. HPI: Kitty Ingarm is a 39 y.o. female at 16w+3d gestation, here in preoperative consultationfor a D&E due to genetic anomalies. Kitty had [place] testing done which showed a fetus at highrisk for trisomy 21 (greater than 99/100). She had an amniocentesis on 08/27/2015 that confirmed this diagnosis. Kitty has struggled greatly with her decision. Her partner, Kojo, was very set on termination from the beginning. Kitty has a 12 year old daughter and a 10 and 8 year old son at home. Her daughter also has Down's syndrome and is highly functional. Kitty is worried now that she's working full-time she will not have the time to devote to another special needs child. She also is concerned about her boys already having to care for their sister once she is gone and cannot fathom having another child they would be responsible for taking care of. While the decision is difficult, she feels termination is the best option for her family. REVIEW OF SYSTEMS/FUNCTIONAL STATUS: Review of Systems - Negative, except breast tenderness and nausea. Bleeding disorder (h/o nose bleeds, excessive bleeding following a surgical procedure, heavy menses,easy bruising, dental/gum bleeding?): No. Personal or Family history of blood clots?: Kitty did have a PP hemorrhage after the of her youngest son in 2007, which required her to go to the OR for a clot evacuation. She cannot recall if she needed a transfusion at that time. Patient's last menstrual period was 05/10/2015. Kitty is sexually active with her partner, Kojo.They have been together for the past 5 years. Past anesthesia problems?: None. HISTORY OB History Para Term AB TAB SAB Ectopic Multiple Living 5 3 3 1 1 3 Patient Active Problem List Diagnosis Code ??? Fibroid uterus D25.9 Past Medical History Diagnosis Date ??? Other abnormal Papanicolaou smear of cervix and cervical HPV(795.09) 2010 +HPV; colpo negative ??? Varicella Past Surgical History Procedure Laterality Date ??? Tympanostomy tube placement as a child FAMILY HISTORY Kitty's family history includes Congenital Anomalies in her brother; Diabetes in her father; Down Syndrome in her daughter; Heart Disease in her father, paternal grandfather, and paternal grandmother;Hyperlipidemia in her mother; Hypertension in her mother; Myocardial Infarction in her father; Loss in her paternal grandmother; Thyroid Disease in her mother. SOCIAL HISTORY Social History Occupational History ??? Not on file. Social History Main Topics ??? Smoking status: Never Smoker ??? Smokeless tobacco: Not on file ??? Alcohol use No ??? Drug use: No ??? Sexual activity: Yes Partners: Male Kitty reports that she has never smoked. She does not have any smokeless tobacco history on file. She reports that she does not drink alcohol or use illicit drugs. Allergies Allergen Reactions ??? Pollen Extracts Seasonal allergy Outpatient Prescriptions Marked as Taking for the 09/02/15 encounter (Office Visit) with Barbara Kan APRN Medication Sig Dispense Refill ??? DOCOSAHEXANOIC ACID (DHA ORAL) Take by mouth. ??? PNV95/FERROUS FUMARATE/FA ( ORAL) Take by mouth. Wt Readings from Last 3 Encounters: 09/02/15 69.8 kg (153 lb 14.4 oz) 08/27/15 69.4 kg (153 lb) Body mass index is 24.84 kg/(m^2). Physical Exam: Vitals: 09/02/15 0807 BP: 124/67 Pulse: 84 Temp: 36.8 ??C (98.2 ??F) General: Appears healthy and well nourished. Appropriately sad. Psychiatric: Affect is appropriate. Neurological: Alert and oriented to person, place, and time. Skin: Warm, dry and intact. No abnormal rashes or lesions noted. Non-diaphoretic. HEENT: Grossly normal. No lymphadenopathy. Anicteric, normal scleral and conjunctivae. Thyroid: Symmetrical. No palpable masses. Not enlarged. Respiratory: Lungs clear to auscultation bilaterally. Cardiovascular: Normal rate and rhythm. No audible murmurs or gallops. Extremities: No unusual findings noted. No cyanosis, clubbing or edema. Pelvic Exam: Deferred to OR Lab/Radiology Review: Results for orders placed or performed in visit on 08/27/15 ABO/Rh Typing Result Value Ref Range ABORh Type O Neg Antibody screen Result Value Ref Range Ab Screen Interp Negative Expires at 2359 on: 08/30/2015 Insight Analysis Amniotic Fluid Result Value Ref Range Insight Amn Fld See Note Prepare Rh Immune Globulin Result Value Ref Range Dispensed? Yes ASSESSMENT: Kitty is a female with a 16w+3d IUP undergoing second trimester termination of . The following options were reviewed with her today: continuing the , placing the baby for adoption or terminating the . After carefully considering her options, she is sure of her decision to terminate the . She states that this decision has been made freely and without coercion. We discussed what she can expect after the procedure and she was given a post surgical instruction and information sheet. PLAN: Sent to lab for blood draw: ?? Needs T&S and CBC today Reviewed medications needed prior to laminaria placement: ?? Take 800mg ibuprofen 1 hr prior to procedure ?? Take 4mg zofran 1 hour prior to the procedure ?? Offered 1mg of ativan 1 hour prior to procedure and Kitty declines ?? Return to clinic at 3pm for laminaria placement. We will proceed with the D&E in the Main OR on 09/03/2015. ?? Anesthesia preference: per anesthesia ?? (X) Discontinue all medications and solid foods at midnight ?? (X) Clear liquids (water, apple juice, clarke layla, or black coffee) may be consumed until 2 hoursprior to scheduled procedure. ?? Blood Type - O-negative (X) Rhogam given 08/27/2015. No additional doses are required. ?? Discussed contraception. Kitty does not wish to decide on a method at this time. She is uncertain she wants any more children, but her partner would like to try again. She will consider an IUD or possibly sterilization. She already told her partner no sex for 6-8 weeks following the procedure. The procedure and risks related to the procedure were discussed thoroughly with her. All of her questions have been answered. Informed consent for laminaria placement and D&E has been reviewed and signed. BARBARA KAN, MUD CLEANER OPERATOR 09/02/2015 documented in this encounter Plan of Treatment Not on filedocumented as of this encounter Visit Diagnoses Diagnosis Preop examination - Primary Preoperative examination, unspecified documented in this encounter Care Teams Sales Department Manager Relationship Specialty Start Date End Date Ulysses Reza MD PCP - General 01/18/10 07/20/16 [address] [place] [address] documented as of this encounter
--- OUTSIDE RECORDS SUMMARY | 2021-09-02 11:10 | XMS_ITS | Encounter Summary ---
:1975 Author Organization [facility] [place] [address] Care Team Providers Name Role Phone Taniya Wright MD Primary Care Provider Encounter Details Date Type Department Care Team Description 11/19/2009 Interpretation Only Radiology at [facility] Ce nter None [address] [facility] [place] [phone] Social History Tobacco Use Types Packs/Day Years Used Date Never Assessed Sex Assigned at Date Recorded Not on file documented as of this encounter Plan of Treatment Not on filedocumented as of this encounter Procedures Procedure Name Priority Date/Time Associated Comments Diagnosis US PELVIS AND Routine 11/19/2009 5:39 PM Results for this TRANSVAGINAL COMPLETE EDT proced ure are in the results section. documented in this encounter Results US PELVIS AND TRANSVAGINAL COMPLETE (11/19/2009 5:39 PM EDT) Anatomical Region Laterality Modality Other Specimen (Source) Anatomical Collection Method Collection Time Re ceived Time Location / / Volume Laterality 11/19/2009 5:39 PM EDT Narrative 11/19/2009 5:39 PM EDT APD Historical Result Principal Lens Grinder Rough: ??BERLIN ??ACOST A PELVIC ULTRASOUND: COMPARISON: ??None. HISTORY: ??Metrorrhagia. ??LMP November 07, 2009. FINDINGS: Transabdominal and transvaginal scanning was performed. ??On transabdominal imaging, the uterus measures approximately 9.7 x 4.6 x 5.8 c m. ??No focal myometrial mass lesion identified. ??The endometrial echo complex is unremarkable in appearan ce measuring 8 mm in AP dimension. The right ovary was better demonstrated on transvaginal imaging and measures 3.9 x 3 x 2.6 cm. A dominant follicle/cystic structure me asuring 2.3 cm in maximum dimension is noted. ??Smaller follicles within the right ovary are identified. ? ?The left ovary was seen on transabdominal and transvaginal imaging and on transvaginal imaging measures 2.8 x 2.2 x 2.5 cm. ??A dominant follicle or physiologic cyst measuring 1.9 cm in maximum dimensi on identified. ??Doppler interrogation of the ovaries is unremarkable. No significant free pelvic fluid seen. IMPRESSION: No specific abnormality of t he endometrial echo complex. Suspected dominant follicles/physiologic cyst within the ov chas as detailed above, the largest on the right measuring 2.3 cm in maximum dimension. Berlin Charlton MD KA/jaci [id number] CC: Procedure Note Unknown - 08/26/2018Formatting of this n ote might be different from the original. APD Historical Result Principal Lens Grinder Rough: BERLIN CHARLTON PELVIC ULTRASOUND: COMPARISON: None. HISTORY: Metrorrhagia. LMP November 07, 2009. FINDINGS: Transabdominal and transvaginal scanning was performed. On transabdominal imaging, the uterus measures approximately 9.7 x 4.6 x 5.8 c m. No focal myometrial mass lesion identified. The endometrial echo complex is unremarkable in appearan ce measuring 8 mm in AP dimension. The right ovary was better demonstrated on transvaginal imaging and measures 3.9 x 3 x 2.6 cm. A dominant follicle/cystic structure me asuring 2.3 cm in maximum dimension is noted. Smaller follicles within the right ovary are identified. T he left ovary was seen on transabdominal and transvaginal imaging and on transvaginal imaging measures 2.8 x 2.2 x 2.5 cm. A dominant follicle or physiologic cyst measuring 1.9 cm in maximum dimensi on identified. Doppler interrogation of the ovaries is unremarkable. No significant free pelvic fluid seen. IMPRESSION: No specific abnormality of t he endometrial echo complex. Suspected dominant follicles/physiologic cyst within the ov chas as detailed above, the largest on the right measuring 2.3 cm in maximum dimension. [place] Charlton MD TAMARA/jaci [id number] CC: Unknown PACS IMAGES documented in this encounter Visit Diagnoses Not on filedocumented in this encounter Care Teams Preparing Box Tender Relationship Specialty Start Date End Date Taniya Wright MD PCP - General Family Medicine 06/13/17 09/22/20 [address] [address] documented as of this encounter
--- OUTSIDE RECORDS SUMMARY | 2021-09-02 11:10 | XMS_ITS | Encounter Summary ---
:1975 Author Organization [facility] [address] Care Team Providers Name Role Phone Ulysses Reza MD Primary Care Provider Encounter Details Date Type Department Care Team Description 03/17/2016 Orders Only Obstetrics and Yeimy, Edda Previous Gynecology at [facility] complicated by [facility] [address] abnormality, [place] [address] OBSTETRICS & antepartum, second [phone] GYNECOLOGY trimester [place] [address] Social History Tobacco Use Types Packs/Day Years Used Date Never Smoker Alcohol Use Standard Drinks/Week Comments No 0 (1 standard drink = 0.6 oz pure alcoho l) Sex Assigned at Date Recorded Not on file documented as of this encounter Plan of Treatment Not on filedocumented as of this encounter Results US OB Detailed Morphology [...] 07:24 am) PATIENT INFO: ID #: ? [id number] ?: ??[birth year] (40 yrs) Name: ? CHELLY Carrillo ? Visit Date: 04/05/2016 12:48 pm ? LOLA PERFORMED BY: Performed By: ? Rebecca Cooley RDMS Attending: ?Gilbert SCHWARTZ, Dipti Rossi Referred By: ?NATY PELAYO CNM Location: ? [place] SERVICE(S) PROVIDED: ??[facility] - Detailed Morphology - [id number] ? [id number] INDICATIONS: ??prev pregnanacy tri 21 OB HISTORY: [...] Outflow Tract: ?Visualized Aortic Arch: ?Visualized Cardiac [place]: ? Visualized 3 Vessel View: ?Visualized Diaphragm: [...] 017 07:24 am) PATIENT INFO: ID #: [id number] : [birth year] (40 y rs) Name: CHELLY Carrillo Visit Date: 04/05/2016 1 2:48 pm LOLA PERFORMED BY: Performed By: Rebecca Cooley RDMS Attending: Dipti Hunt MD Referred By: NATY PELAYO [facility] Location: [place] SERVICE(S) PROVIDED: [facility] - Detailed Morphology - [id number] INDICATIONS: prev pregnanacy tri 21 [...] Outflow Tract: Visualized Aortic Arch: Visualized Cardiac [place]: Visualized 3 Vessel View: Visualized Diaphragm: Visualized [...] by chromo somal abnormality, antepartum, second trimester Previous complicated by chromo somal abnormality, antepartum, second trimester documented in this encounter Care Teams Industrial Technologist Relationship Specialty Start Date End Date Ulysses Reza MD PCP - General 01/18/10 07/20/16 [address] [place] [address] documented as of this encounter
--- OUTSIDE RECORDS SUMMARY | 2021-09-02 11:10 | XMS_ITS | Encounter Summary ---
:1975 Author Organization [facility] [place] [address] Care Team Providers Name Role Phone Ulysses Reza MD Primary Care Provider Encounter Details Date Type Department Care Team Description 09/02/2015 Laboratory Appointment Lab 3L Diane Ivy Trisomy 21 of fetus, [facility] [place] [id number] Social History Tobacco Use Types Packs/Day Years Used Date Never Smoker Alcohol Use Standard Drinks/Week Comments No 0 (1 standard drink = 0.6 oz pure alcoho l) Sex Assigned at Date Recorded Not on file documented as of this encounter Plan of Treatment Not on filedocumented as of this encounter Procedures Procedure Name Priority Date/Time Associated Comments Diagnosis AB COMMENT Routine 09/02/2015 9:31 AM Results f or this EDT procedure are i n the results section. HEMOGRAM Routine 09/02/2015 9:31 AM Trisomy 21 of Results for this EDT fetus, current procedure are in the results section. DIFFERENTIAL, AUTOMATED Routine 09/02/2015 9:31 AM Trisomy 21 of Results for this EDT fetus, current procedure are in the results section. ANTIBODY IDENTIFICATION Routine 09/02/2015 9:31 AM Results for this EDT procedure are i n the results section. ABO/RH TYPING Routine 09/02/2015 9:31 AM Trisomy 21 of Results for this EDT fetus, current procedure are in the results section. CBC (WITH DIFF) Routine 09/02/2015 9:31 AM Trisomy 21 of EDT fetus, current ANTIBODY SCREEN Routine 09/02/2015 9:31 AM Trisomy 21 of Resul ts for this EDT fetus, current procedure are in the results section. TYPE AND SCREEN Routine 09/02/2015 9:31 AM Trisomy 21 of ([facility]IR[facility]) EDT fetus, current documented in this encounter Results Ab Comment (09/02/2015 9:31 AM EDT) Component Value Ref Test Analysis Performed At [facility] Range Method Time Signature Ab Information INTERPRETATION: The patient' s specimen shows the presence of the antibody DIANE anti-D. ??The patient is negative for the RhD antigen. The patient recently TAMIR received RhIg; the reactivity in the specimen almost certa inly represents [facility] passive anti-D. ??Unit selection is per routine. [facility] Violet Mayberry MD LABORATORY Transfusion Medicine Service 09/06/15 09:51 Comment: Violet Mayberry, Pathologist Verified:09/06/15 Specimen Anatomical Collection Method Collection Time Receive d Time (Source) Location / / Volume Laterality Blood specimen 09/02/2015 9:31 AM 016 9:37 (specimen) EDT AM EDT Resulting Agency Comment Spec In Lab Jerome Lezama MD BLOOD BANK ORDERABLES Performing Organization Address City/[facility]/ZIP [place] [address] Antibody identification (09/02/2015 9:31 AM EDT) [facility] Method Time Signature Ab Identified Anti-D [facility] LABORATORY Specimen Anatomical Collection Method Collection Time Receive d Time (Source) Location / / Volume Laterality Blood specimen 09/02/2015 9:31 AM 016 9:37 (specimen) EDT AM EDT Resulting Agency Comment Spec In Lab Jerome Lezama MD BLOOD BANK ORDERABLES Performing Organization Address City/[facility]/ZIP Code Phon e Number [address] Antibody screen (09/02/2015 9:31 AM EDT) [facility] Method Time Signature Ab Screen Positive [facility] LABORATORY Expires at 09/05/2015 DIANE [id number] [id number] on: [facility] LABORATORY Specimen Anatomical Collection Method Collection Time Receive d Time (Source) Location / / Volume Laterality Blood specimen 09/02/2015 9:31 AM 016 9:37 (specimen) EDT AM EDT Resulting Agency Comment Spec In Lab Jerome Lezama MD BLOOD BANK ORDERABLES Performing Organization Address City/[facility]/ZIP Code Phon e Number [address] ABO/Rh Typing (09/02/2015 9:31 AM EDT) athologist Signature ABORh Type O Neg [facility] LABORATORY Specimen Anatomical Collection Method Collection Time Receive d Time (Source) Location / / Volume Laterality Blood specimen 09/02/2015 9:31 AM 016 9:37 (specimen) EDT AM EDT Resulting Agency Comment Spec In Lab Jerome Lezama MD BLOOD BANK ORDERABLES Performing Organization Address [facility] Phon e Number [address] Differential, Automated (09/02/2015 9:31 AM EDT) athologist Signature Neutrophils % 70.4 % [facility] LABORATORY Neutr Abs (ANC) 6.25 1.50 - [facility] 6.30 [facility] x10(3)/[facility] LABORATORY Lymphocytes % 19.8 % [facility] LABORATORY Lymphocytes Abs 1.8 1.0 - 3.6 [facility] x10(3)/[facility] LABORATORY Monocytes % 7.7 % [facility] LABORATORY Monocyte Abs 0.7 0.2 - 1.0 [facility] x10(3)/[facility] LABORATORY Eosinophils % 1.6 % [facility] LABORATORY Eosinophils Abs 0.1 0.0 - 0.5 [facility] x10(3)/[facility] LABORATORY Basophils % 0.2 % [facility] LABORATORY Basophils Abs 0.0 0.0 - 0.2 [facility] x10(3)/[facility] LABORATORY Immature Gran % 0.30 % [facility] LABORATORY Comment: Immature granulocytes(IG's)percentage an d absolute count will include metamyelocytes, myelocytes, and promyelo cytes. Blood smears from CBCs yielding IG's will be scanned manually for concor dance. If this scan disagrees with the automated IG or if promyelocytes are not ed, a manual differential will be performed. Arelis Gran Abs 0.03 0.00 - 0.05 x10(3)/[facility] LABORATORY Specimen Anatomical Collection Method Collection Time Receive d Time (Source) Location / / Volume Laterality Blood specimen 09/02/2015 9:31 AM 016 9:37 (specimen) EDT AM EDT Resulting Agency Comment Spec In Lab Jerome Lezama MD HEMATOLOGY ORDERABLES Performing Organization Address City/State/[place] [address] Hemogram (09/02/2015 9:31 AM EDT) P athologist Signature WBC 8.9 4.0 - 10.0 [facility] x10(3)/[facility] LABORATORY RBC 4.06 3.93 - 5.22 [facility] x10(6)/[facility] LABORATORY Hemoglobin 13.0 11.2 - 15.7 [facility] gm/dL [facility] LABORATORY Hematocrit 37.3 34.0 - 45.0 [facility] LABORATORY MCV 91.9 79.0 - 94.0 [facility] LABORATORY MCH 32.0 26.6 - 32.2 [facility] LABORATORY MCHC 34.9 32.0 - 36.5 [facility] gm/dL [facility] LABORATORY Platelets 211 145 - 370 [facility] x10(3)/[facility] LABORATORY RDWSD 41.6 35.0 - 46.0 [facility] LABORATORY RDWCV 12.4 10.9 - 14.4 [facility] LABORATORY MPV 10.2 9.0 - 12.0 [facility] LABORATORY Specimen Anatomical Collection Method Collection Time Receive d Time (Source) Location / / Volume Laterality Blood specimen 09/02/2015 9:31 AM 016 9:37 (specimen) EDT AM EDT Resulting Agency Comment Spec In Lab Jerome Lezama MD HEMATOLOGY ORDERABLES Performing Organization Address City/State/[place] [address] documented in this encounter Visit Diagnoses Diagnosis Trisomy 21 of fetus, current documented in this encounter Care Teams Employee Communications Intern Relationship Specialty Start Date End Date Ulysses Reza MD PCP - General 01/18/10 07/20/16 [address] [place] [address] documented as of this encounter
--- OUTSIDE RECORDS SUMMARY | 2021-09-02 11:10 | XMS_ITS | Encounter Summary ---
:1975 Author Organization [facility] [place] [address] Care Team Providers Name Role Phone Taniya Wright MD Primary Care Provider Encounter Details Date Type Department Care Team Description 11/12/2009 Orders Only Radiology and Cardiology Apd Conversion, Results Results Provider, [address] [place] [phone] Social History Tobacco Use Types Packs/Day Years Used Date Never Assessed Sex Assigned at Date Recorded Not on file documented as of this encounter Plan of Treatment Not on filedocumented as of this encounter Procedures Procedure Name Priority Date/Time Associated Diagnosis Comme nts CYTOPATHOLOGY Routine 11/12/2009 Results for th is GYNECOLOGICAL procedure are in the results section . documented in this encounter Results (ABNORMAL) Cytopathology Gynecological (11/12/2009) [facility] Method Time Signature Etiologist Cytology Please see GEORGIE LOPEZ Final Report Georgie SANTANA legacy report (External Lab) Specimen (Source) Anatomical Location Collection Method / Collectio n Time Received Time / Laterality Volume 11/12/2009 Narrative GEORGIE CAMACHO CONVERSION - 11/19/2009 Please see Georgie Lopez Legacy report Results Provider Apd Conversion PATHOLOGY/CYTOLOGY ORDERABLES Performing Organization Address City/State/ZIP Code Phon e Number GEORGIE CAMACHO CONVERSION [address] [place], [place] [address] GEORGIE LOPEZ CONVERSION documented in this encounter Visit Diagnoses Not on filedocumented in this encounter Care Teams Charter Boat Captain Relationship Specialty Start Date End Date Taniya Wright MD PCP - General Family Medicine 06/13/17 09/22/20 [address] [place] [address] documented as of this encounter
--- OUTSIDE RECORDS SUMMARY | 2021-09-02 11:10 | XMS_ITS | Encounter Summary ---
:1975 Author Organization [facility] [place] [address] Care Team Providers Name Role Phone Taniya Wright MD Primary Care Provider Encounter Details Date Type Department Care Team Description 10/18/2007 Orders Only Radiology and Cardiology Apd Conversion, Results Results Provider, [address] [place] [phone] Social History Tobacco Use Types Packs/Day Years Used Date Never Assessed Sex Assigned at Date Recorded Not on file documented as of this encounter Plan of Treatment Not on filedocumented as of this encounter Procedures Procedure Name Priority Date/Time Associated Diagnosis Comme nts CYTOPATHOLOGY Routine 10/18/2007 Results for th is GYNECOLOGICAL procedure are in the results section . documented in this encounter Results (ABNORMAL) Cytopathology Gynecological (10/18/2007) [facility] Method Time Signature Newspaper Editor Cytology Please see GEORGIE LOPEZ Final Report Georgie SANTANA legacy report (External Lab) Specimen (Source) Anatomical Location Collection Method / Collectio n Time Received Time / Laterality Volume 10/18/2007 Narrative GEORGIE CAMACHO CONVERSION - 10/25/2007 Please see Georgie Lopez Legacy report Results Provider Apd Conversion PATHOLOGY/CYTOLOGY ORDERABLES Performing Organization Address City/State/ZIP Code Phon e Number GEORGIE CAMACHO CONVERSION [address] [place], [place] [address] GEORGIE LOPEZ CONVERSION documented in this encounter Visit Diagnoses Not on filedocumented in this encounter Care Teams Family Practice Nurse Practitioner Relationship Specialty Start Date End Date Taniya Wright MD PCP - General Family Medicine 06/13/17 09/22/20 [address] [place] [address] documented as of this encounter
--- OUTSIDE RECORDS SUMMARY | 2021-09-02 11:10 | XMS_ITS | Encounter Summary ---
:1975 Author Organization [facility] Address [place] [id number] Care Team Providers Name Role Phone Ulysses Reza MD Primary Care Provider Reason for Visit Reason Comments Skin Check Encounter Details Date Type Department Care Team Description 06/16/2011 Office Visit Dermatology Angeles Mckay, Benign nevus (Primary Dx); [facility] MD LIN (seborrheic keratosis) Drive [place] [id number] [facility] RAMY-DERMATOLGY [place] [address] (Wo rk) Social History Tobacco Use Types Packs/Day Years Used Date Never Smoker Sex Assigned at Date Recorded Not on file documented as of this encounter Progress Notes Angeles Cantu MD - 06/16/2011 1:06 PM EDT DERMATOLOGY CONSULT PATIENT CLINIC NOTE Date of service: 06/16/2011 Kitty Ingram : 1975 Provider: Angeles Cantu MD Chief Complaint Patient presents with ??? Skin Check SKIN HISTORY: No significant skin history HPI Kitty Ingram is a 35 y.o. year old female. Referred by PCP. Presents today for the above. Last seen by Geri Wills MD on 01/21/2007. C/o wart like growth on right lateral lower eyelid. Present for several years; seems to be getting larger. No personal/ family history of skin cancer or other skindisease. Patient wears sunscreen when outdoors in the summer. Healthy today. ADR: Allergies Allergen Reactions ??? Pollen Extracts Seasonal allergy MEDS: Current outpatient prescriptions ordered prior to encounter Medication Sig Dispense Refill ??? ondansetron (ZOFRAN) 8 mg tablet ROS General: feeling well Skin: denies other skin complaints EXAM General: NAD, pleasant, cooperative Skin: A total body skin exam except for areas covered by underwear was performed. This includes examination of the skin of the face, ears, neck, chest, axillae, left and right upper and lower extremities, hands and feet, abdomen, and except the areas covered by underwear were not examined. Significant skin findings: A. 0.3 cm Brown waxy papule on lateral lower eyelid B. Scattered benign appearing nevi, torso an darms predominantly, none worrisome ASSESSMENT/PLAN: A. Seborrheic keratosis, discussed tx options. Bothersome and growing - she would like tx. - Procedure(s): Destruction of lesion(s) with cryotherapy. Number: 1 Location: as above Discussed procedure and expectations including risks (including risk of hypopigmentation) and benefits. Verbal consent obtained. Frozen with LN2, 15-30 second thaw time, TWICE. There were no complications; the patient tolerated the procedure well. Post-procedure expectations and wound care were reviewed. Discussed possible need for re-treatment in six weeks. Patient will call for follow up as needed. B. Benign nevi - reassured C. Discussed importance of sun protection, sun avoidance strategies, protective clothing, and sunscreen. RTC 12 months or sooner as needed. Note initiated by: RADHA DUDLEY LPN Routed to physician for review and changes: Angeles Cantu MD Plating Engineer of Dermatology Department of Surgery [facility] documented in this encounter Plan of Treatment Not on filedocumented as of this encounter Visit Diagnoses Diagnosis Benign nevus - Primary Benign neoplasm of skin, site unspecifie d SK (seborrheic keratosis) Other seborrheic keratosis documented in this encounter Care Teams Emergency Department Director Relationship Specialty Start Date End Date Ulysses Reza MD PCP - General 01/18/10 07/20/16 [address] [place] [address] documented as of this encounter
--- OUTSIDE RECORDS SUMMARY | 2021-09-02 11:10 | XMS_ITS | Encounter Summary ---
:1975 Author Organization [facility] Address [facility] [place] [address] Care Team Providers Name Role Phone Ulysses Reza MD Primary Care Provider Encounter Details Date Type Department Care Team Description 07/12/2016 Office Visit Obstetrics and Franck Woodward Echogenic foc us of [facility]necology [place] [facility] [place] Alfreda bowel of fetus [facility] aff ecting antepartum Drive DR care of mother [place], [place] OBSTETRICS & [phone] GYNECOLOGY [phone] [place], [place] [address] Social History Tobacco Use Types Packs/Day Years Used Date Never Smoker Alcohol Use Standard Drinks/Week Comments No 0 (1 standard drink = 0.6 oz pure alcoho l) Sex Assigned at Date Recorded Not on file documented as of this encounter Progress Notes Franck Woodward MD - 07/12/2016 4:00 PM EDT Gestational age: 32w2d, returns for follow-up ultrasound and limited MFM consult. Patient Active Problem List Diagnosis Date Noted ??? Fibroid uterus 09/02/2015 Ultrasound Date: 07/12/2016 Growth appropriate for gestational age Amniotic fluid volume normal Presentation cephalic Placenta anterior anatomy appears within normal limits Physical Exam LMP 05/10/2015 General: alert, well appearing, in no apparent distress, oriented to person, place and time HEENT: normocephalic, atraumatic Abdomen: Gravid, soft, nontender Extremities: no edema Neurologic:alert, oriented, normal speech, no focal findings or movement disorder noted Psychiatric: Affect is Appropriate. Assessment and Recommendations: 40 y.o. year old female at 32w2d weeks gestation with previously seen echogenic bowel, now with normal appearing anatomy, growth, fluid and placentation. I appreciate the opportunity to be involved in this patients care, and am available if further questions should arise. Franck WOODWARD MD 07/12/2016 Cc: Anastacia Rhodes, with copy of ultrasound report documented in this encounter Plan of Treatment Not on filedocumented as of this encounter Visit Diagnoses Diagnosis Echogenic focus of bowel of fetus affect ing antepartum care of mother documented in this encounter Care Teams Cow Tender Relationship Specialty Start Date End Date Ulysses Reza MD PCP - General 01/18/10 07/20/16 [address] [place] [address] documented as of this encounter
--- OUTSIDE RECORDS SUMMARY | 2021-09-02 11:10 | XMS_ITS | Encounter Summary ---
:1975 Author Organization [facility] [place] [address] Care Team Providers Name Role Phone Ulysses Reza MD Primary Care Provider Reason for Visit Reason Comments Ultrasound Consultation (Routine) - Closed Specialty Diagnoses / Procedures Referred By Contact Refer red To Contact Genetics / Obstetrics Diagnoses MATERNAL AGE, POSITIVE HARMONY FOR DS, WANTS AMNIO Carmen Alfred [facility] c Stock Layer 5l and Gynecology Procedures FULL SLOT N, CNM [address], [place] [id number] Referral ID Status Reason Start Date Expiration Date Visits Requ ested Visits Authorized [id number] Closed 08/10/2015 08/09/2016 2 2 Encounter Details Date Type Department Care Team Description 08/27/2015 Procedure visit Obstetrics and Pschirrer, E Abnormal m ultiple marker screen in fetus; Gynecology at [facility] MD Alfreda Maternal age 35+, multigravida, second t rimester; [facility] Abnormal finding on screen [facility] [address] [place] OBSTETRICS & [address] GYNECOLOGY [phone] [place] [address] Social History Tobacco Use Types Packs/Day Years Used Date Never Smoker Sex Assigned at Date Recorded Not on file documented as of this encounter Last Filed Vital Signs Vital Sign Reading Time Taken Comments Blood Pressure 116/60 08/27/2015 8:45 AM EDT Pulse - - Temperature - - Respiratory Rate - - Oxygen Saturation - - Inhaled Oxygen Concentration - - Weight 69.4 kg (153 lb) 08/27/2015 8:45 AM EDT Height 167.6 cm (5' 6) 08/27/2015 8:45 AM EDT Body Mass Index 24.69 08/27/2015 8:45 AM EDT documented in this encounter Progress Notes Franck Woodward MD - 08/27/2015 9:50 AM EDT Diagnosis/Maternal Medicine Consult Note Kitty Ingram is a 39 y.o. year old female who is at 15w4d gestation. She is seen in consultation at the request of Carmen Alfred CNM for evaluation of anatomy due to increased risk of trisomy 21 on aneuploidy screen (Cell free DNA: >99/100). She was seen today for maternal- medicine consultation, ultrasound evaluation and genetic counseling with Joe Gong MS. Review of Systems Constitutional:feels well Movement: normal Contractions: none Leaking: None Bleeding: None There are no active problems to display for this patient. No past medical history on file. No past surgical history on file. No family history on file. Social History Occupational History ??? Not on file. Social History Main Topics ??? Smoking status: Never Smoker ??? Smokeless tobacco: Not on file ??? Alcohol use Not on file ??? Drug use: Not on file ??? Sexual activity: Not on file OB History Para Term AB TAB SAB Ectopic Multiple Living 1 # Outc Date GA Lbr Ruy/2nd Wgt Sex Del Anes PTL Lv 1 Current Current Outpatient Prescriptions Medication Sig Dispense Refill ??? PNV95/FERROUS FUMARATE/FA ( ORAL) Take by mouth. ??? ondansetron (ZOFRAN) 8 mg tablet (Patient not taking: No sig reported) No current facility-administered medications for this visit. Allergies Allergen Reactions ??? Pollen Extracts Seasonal allergy Ultrasound Date: 08/27/2015 Amniotic fluid volume normal Presentation variable Placenta anterior Growth appropriate for gestational age anatomy is remarkable for an isolated echogenic intracardiac focus. The remained of the anatomy is limited by early gestational age, however no anomalies are seen. Physical Exam BP 116/60 Ht 167.6 cm (5' 6) Wt 69.4 kg (153 lb) BMI 24.69 kg/m2 General: alert, well appearing, in no apparent distress, oriented to person, place and time HEENT: normocephalic, atraumatic Abdomen: Gravid, soft, nontender Neurologic:alert, oriented, normal speech, no focal findings or movement disorder noted Psychiatric: Affect is Appropriate. Assessment and Recommendations: 39 y.o. year old female at 15w4d weeks gestation, referred for counseling regarding elevated risk of trisomy 21. We reviewed the association of echogenic intracardiac focus as a minor marker for trisomy 21. The patient was counseled as to her risk of aneuploidy and the possibility of definitive diagnosis by amniocentesis. The limitations of serum screening and ultrasound in predicting aneuploidy, and risk of loss due to amniocentesis were also discussed. I reviewed the ultrasound findings with the patient and her , and the usefulness of ultrasound as a genetic screening tool. We discussed the option of diagnostic testing with amniocentesis. I explained that amniocentesis only counts chromosomes and looks for large pieces that are missing or duplicated or rearranged. Amniocentesis will not diagnose cerebral palsy, autism, learning disabilities or single gene defects, and a normal karyotype does not imply a normal outcome. The patient opted for amniocentesis. Following informed consent discussion, amniocentesis was performed under ultrasound guidance. A 22 gauge needle and ultrasound guidance was used under ultrasound guidance 20 cc of clear fluid was obtained. The fluid was sent for chromosome analysis and alpha-fetoprotein. The patient is Rh negative, and was sent to clinic to receive Rhogam. Preliminary results willbe available in 48 hours. The final results will be available in one to two weeks, will be telephoned to the patient and will be sent to the referring provider's office. The patient was advised about the signs and symptoms of complications and limitation of activity. She was asked to contact her provider if complications occur. We would also like to be informed of any possible complication. I appreciate the opportunity to be involved in this patients care, and am available if further questions should arise. Franck WOODWARD MD 08/27/2015 Cc: Carmen Alfred, [facility] [address] [place] [address] [place] [address] , with copy of ultrasound report documented in this encounter Plan of Treatment Not on filedocumented as of this encounter Procedures Procedure Name Priority Date/Time Associated Comments Diagnosis INSIGHT ANALYSIS Routine 08/27/2015 11:32 AM Maternal age 35+, Results for this AMNIOTIC FLUID EDT multigravida, procedure ar e in second trimester the results Abnormal finding on section. screen CHROMOSOME ANALYSIS Routine 08/27/2015 11:32 AM Maternal age 3 5+, Results for this AMNIOTIC FLUID EDT multigravida, procedure ar e in second trimester the results Abnormal finding on section. screen ALPHA FETOPROTEIN, Routine 08/27/2015 11:32 AM Maternal age 35 +, Results for this AMNIOTIC FLUID EDT multigravida, procedure ar e in second trimester the results Abnormal finding on section. screen ABO/RH TYPING Routine 08/27/2015 10:45 AM Abnormal multiple Re sults for this EDT marker screen in procedure a re in fetus the results section. ANTIBODY SCREEN Routine 08/27/2015 10:45 AM Abnormal multiple Results for this EDT marker screen in procedure a re in fetus the results section. TYPE AND SCREEN Routine 08/27/2015 10:45 AM Abnormal multiple ([facility]/YAJAIRA) EDT marker screen in fetus PREPARE RH IMMUNE Routine 08/27/2015 12:00 AM Abnormal multipl e Results for this GLOBULIN EDT marker screen in procedure a re in fetus the results section. documented in this encounter Results Insight Analysis Amniotic Fluid (08/27/2015 11:32 AM EDT) Analysis Performed At Patho logist Time Signature Insight Amn See Note [facility] LABORATORY Comment: Please see scanned report in Ch art Review under the Non-DH Laboratory Heading. Specimen Anatomical Collection Method Collection Time Receive d Time (Source) Location / / Volume Laterality Amniotic fluid 08/27/2015 11:32 6 specimen AM EDT 12:31 PM EDT (specimen) Narrative This result has an attachment that is no t available. Resulting Agency Comment Spec In Lab E Alfreda Woodward MD BODY FLUIDS AND STOOLS ORDER BILL Performing Organization Address City/State/[facility] [place] [address] Chromosome Analysis Amniotic Fluid (08/27/2015 11:32 AM EDT) Patholo gist Method Time Signature Chromosome Amn See Note [facility] LABORATORY Comment: Please see scanned report in Chart Revie w under the Non- Laboratory Heading. Testing performed at [facility], [address], [place] [address]. Specimen Anatomical Collection Method Collection Time Receive d Time (Source) Location / / Volume Laterality Amniotic fluid 08/27/2015 11:32 6 specimen AM EDT 12:31 PM EDT (specimen) Narrative This result has an attachment that is no t available. Resulting Agency Comment Spec In Lab E Alfreda Woodward MD BODY FLUIDS AND STOOLS ORDER BILL Performing Organization Address City/[facility]/ZIP Code Phon e Number [address] Alpha Fetoprotein, Amniotic Fluid (08/27/2015 11:32 AM EDT) Analysis Performed At Patho logist Time Signature Week Gestation 16 week(s) [facility] AFP Amniotic 7.04 mcg/mL [facility] Mult of Median 0.52 [facility] AFP Amniotic See Note See Note [facility] LABORATORY Comment: Please see scanned report in Chart Revie w under the Non- Laboratory Heading. Testing performed at [facility], [address] [place] [address]. Specimen Anatomical Collection Method Collection Time Receive d Time (Source) Location / / Volume Laterality Amniotic fluid 08/27/2015 11:32 6 specimen AM EDT 12:31 PM EDT (specimen) Narrative This result has an attachment that is no t available. Resulting Agency Comment Spec In Lab E Alfreda Woodward MD BODY FLUIDS AND STOOLS ORDER BILL Performing Organization Address City/[facility]/[place] [address] Antibody screen (08/27/2015 10:45 AM EDT) Patholo gist Method Time Signature Ab Screen Negative [facility] LABORATORY Expires at 08/30/2015 DIANE CHAMBERLAINTAMIR 2359 on: [facility] Specimen Anatomical Collection Method Collection Time Receive d Time (Source) Location / / Volume Laterality Blood specimen 08/27/2015 10:45 6 (specimen) AM EDT 10:54 AM EDT Resulting Agency Comment Spec In Lab E Alfreda Woodward MD BLOOD BANK ORDERABLES Performing Organization Address City/[facility]/[place] [address] ABO/Rh Typing (08/27/2015 10:45 AM EDT) P athologist Signature ABORh Type O Neg [facility] Specimen Anatomical Collection Method Collection Time Receive d Time (Source) Location / / Volume Laterality Blood specimen 08/27/2015 10:45 6 (specimen) AM EDT 10:54 AM EDT Resulting Agency Comment Spec In Lab E Alfreda Woodward MD BLOOD BANK ORDERABLES Performing Organization Address City/[facility]/[place] [address] Prepare Rh Immune Globulin (08/27/2015 12:00 AM EDT) P athologist Signature Dispensed? Yes [facility] Specimen (Source) Anatomical Collection Method Collection Time Re ceived Time Location / / Volume Laterality Blood specimen 08/27/2015 08/27/2015 10 :30 (specimen) AM EDT Resulting Agency Comment Spec In Lab E Alfreda Woodward MD BLOOD BANK ORDERABLES Performing Organization Address City/[facility]/[place] [address] documented in this encounter Visit Diagnoses Diagnosis Abnormal multiple marker screen in fetus Abnormal findings on screening Maternal age 35+, multigravida, second t rimester Abnormal finding on screen Abnormal findings on screening documented in this encounter Care Teams Pad Hand Relationship Specialty Start Date End Date Ulysses Reza MD PCP - General 01/18/10 07/20/16 [address] [place] [address] documented as of this encounter
--- OUTSIDE RECORDS SUMMARY | 2021-09-02 11:10 | XMS_ITS | Encounter Summary ---
:1975 Author Organization [facility] [place] [address] Care Team Providers Name Role Phone Ulysses Reza MD Primary Care Provider Reason for Visit Reason Onset Date Comments Results 09/14/2015 Encounter Details Date Type Department Care Team Description 09/14/2015 Telephone Obstetrics and Gynecology at [facility] Joe corona LGC Results [facility] Aruna wills OBSTETRICS & [place] [address] [place] [address] [phone] (Wo rk) Social History Tobacco Use Types Packs/Day Years Used Date Never Smoker Alcohol Use Standard Drinks/Week Comments No 0 (1 standard drink = 0.6 oz pure alcoho l) Sex Assigned at Date Recorded Not on file documented as of this encounter Miscellaneous Notes Telephone Encounter - Joe Gong LGC - 09/14/2015 2:21 PM EDT Genetic Counseling Telephone Note Kitty Ingram opted for amniocentesis on 08/27/2015 due to a at increased risk for trisomy 21 based on cell-free DNA screening. The FISH results were consistent with trisomy 21, and Kitty opted to proceed with D&E for termination on 09/03/2015. We discussed the following additional amniocentesis result today: Karyotype: 47,+21 Cytogenetic analysis showed three copies of chromosome 21 (trisomy 21) in each metaphase cell examined consistent with the clinical diagnosis of Down syndrome. sex was not disclosed. Kitty's oldest daughter has mosaic trisomy 21. Recurrence of trisomy could occur for several reasons: (1) chance alone, due to the maternal age-associated risk, (2) parental gonadal mosaicism for trisomy, or (3) factors associated with an increased risk of meiotic error. The chance for a third trisomic conception may be in the range of 10-20%. We reviewed the options for screening and diagnostic testing for aneuploidy during . We also discussed the option of in vitro fertilization(IVF) with preimplantation genetic screening (PGS) for aneuploidy. Kitty was not aware of the availability of PGS and was very interested in this possibility. I encouraged her to contact me if she has any further questions or would like to have a consultation regarding IVF with PGS. A letter will be mailed to the referring provider's office with a copy of the reports. documented in this encounter Plan of Treatment Not on filedocumented as of this encounter Visit Diagnoses Not on filedocumented in this encounter Care Teams Customer Care Consultant Relationship Specialty Start Date End Date Ulysses Reza MD PCP - General 01/18/10 07/20/16 [address] [place] [address] documented as of this encounter
--- OUTSIDE RECORDS SUMMARY | 2021-09-02 11:10 | XMS_ITS | Encounter Summary ---
:1975 [place] [address] Care Team Providers Name Role Phone Ulysses Reza MD Primary Care Provider Reason for Visit Auth/Cert Specialty Diagnoses / Procedures Referred By Contact Refer red To Contact Diagnoses trisomy 21 Procedures PRO INDUCED ABORTN BY DIL/EVAC INDUCED , DILATION & EVACUATION Referral ID Status Reason Start Date Expiration Date Visits Requ ested Visits Authorized [id number] 1 1 Encounter Details Date Type Department Care Team Description 09/03/2015 Anesthesia Event Main Operating Room Pooja Garcia MD [facility] [place] [address] [facility] Evon Villareal MD [facility] [place] [address] [place] [address] Anesthesia Record Procedure Summary Procedure Name Responsible Anesthesia Start Anesthesia Stop Anesthesiologist Time Time INDUCED Joes Jennifer E, MD 09/03/15 1024 10/11 1145 DILATION & EVACUATION (WRVU 5.65) (N/A Uterus) Events Date Time Event Comment 09/03/2015 0936 1024 Start 1027 AN Verify 1027 An Start Data 1032 An Induction 1033 An Intubation 1037 Anesthesia Ready 1051 Procedure Start 1130 Procedure Stop 1132 Extubation/LMA Out 1138 an stop data 1143 Recovery or ICU Handoff Patient care was transferred to the destination unit staff after review of the patient's medica l history, current anesthetic/surgi griselda status and plan, according to the Provider Handoff Checklist. 1145 Stop Name Total Propofol 220 mg fentaNYL 150 mcg Midazolam 2 mg IV Lidocaine 50 mg Dexamethasone 8 mg Ondansetron 4 mg PHENYLephrine 400 mcg Methylergonovine (METHERGINE) 0.2 mg Oxytocin 0.06 units/mL INF 333.33 mL lactated ringers infusion 1,000 mL 0 mL Agents Name O2 Air Sevoflurane (et) Blood No blood administrations on file. Lines, Drains, and Airways Type Details Placement Removal Incision 09/03/15; vagina 09/03/15 0000 by Azalia Worley RN PIV 09/03/15; 0917; median 09/03/15 0917 by 06/11/17 0921 by Kelly cubital vein left Sara Wiley User (antecubital fossa); RN [id number] catheter system; 20 gauge; Sara Wiley RN; 06/11/17 (Auto removal via utility); 0921 (Auto removal via utility) PIV 09/03/15; 1024; median 09/03/15 1024 by 06/11/17 0921 by Kelly, cubital vein left Evon Villareal, User (antecubital fossa); 20 MD gauge; 06/11/17 (Auto removal via utility); 0921 (Auto removal via utility) Supraglottic Mask Ventilation: Easy 09/03/15 1040 by 09/03/15 1132 by (1); LMA Type: iGel; LMA Evon Villareal, Evon Villareal, Size: 3; Inserted by: MD MD Mary Jane MD documented in this encounter Social History Tobacco Use Types Packs/Day Years Used Date Never Smoker Alcohol Use Standard Drinks/Week Comments No 0 (1 standard drink = 0.6 oz pure alcoho l) Sex Assigned at Date Recorded Not on file documented as of this encounter OR Notes Anesthesia Postprocedure Evaluation - Evon Villareal MD - 09/03/2015 11:56 AM EDT [place] Department of Anesthesiology Post-procedure Note Patient: Kitty Ingram Procedure Summary Date Anesthesia Start Anesthesia Stop Room / Location 09/03/15 1024 1145 [facility] OR 27 / [facility] MAIN OR Procedure Diagnosis Surgeon Responsible Provider INDUCED , DILATION & EVACUATION (N/A Uterus) (trisomy 21) Merced Miller MD O'Flaherty, Jennifer E, MD All Anesthesia Providers: Anesthesiologist: Pooja Garcia MD Hospital Medicine Director: Evon Villareal MD Last (1hr) Vitals: BP 115/84 (09/03/15 1142) Temp 36.1 ??C (97 ??F) (09/03/15 1142) Pulse 65 (09/03/15 1142) Resp 14 (09/03/15 1142) SpO2 100 % (09/03/15 1142) Patient Location: PACU/SD Level of Consciousness: Awake and Alert Pain Management: Pain Being Addressed PONV: Ongoing PONV/Being Treated Cardiovascular Status: At Baseline Respiratory Status: Supplemental O2 (NC or FM) Postoperative Fluid Status: Intravascular HYPOvolemia Possible Anesthetic Complications: NONE apparent at time of evaluation Final Primary Anesthesia Type: General (The anesthetic type performed was the same as planned.) Comments: Patient in SDP with some minor nausea and cramping pain. Hemogram, PT/INR, and T+S being drawn for evaluation/follow-up of intraoperative hemorrhage. EVON VILLAREAL MD Anesthesia Preprocedure Evaluation - Pooja Garcia MD - 09/02/2015 4:30 PM EDT Pre-Anesthesia Evaluation for: Kitty Ingram a 39 y.o. female. Procedure(s): INDUCED , DILATION & EVACUATION Patient Active Problem List Diagnosis ??? Fibroid uterus Past Medical History Diagnosis Date ??? Other abnormal Papanicolaou smear of cervix and cervical HPV(795.09) 2010 +HPV; colpo negative ??? Varicella Past Surgical History Procedure Laterality Date ??? Tympanostomy tube placement as a child Social History Substance Use Topics ??? Smoking status: Never Smoker ??? Smokeless tobacco: Not on file ??? Alcohol use No History Drug Use No No Known Allergies Medications: MAR and/or home medications have been reviewed. Physical Exam: There were no vitals filed for this visit. There is no height or weight on file to calculate BMI. Airway Assessment: Mallampati: I TM distance: >3 FB Neck ROM: full Cardiovascular Assessment: Pulmonary Assessment: Dental Assessment: - normal exam Misc Assessment: IV access: Peripheral line Anesthesia Plan: ASA 2 general, with a(n) intravenous induction 39 F w 16 week presenting for elective termination due to genetic abnormalities in the fetus. NKDA No Medications No prior anesthetic history on file Plan: GA w LMA. IV induction. Standard ASA monitors. Region - Other Informed Consent: Anesthetic plan and risks discussed with patient and spouse. Plan discussed with attending and resident. PAT Staff Note documented in this encounter Plan of Treatment Not on filedocumented as of this encounter Visit Diagnoses Not on filedocumented in this encounter Administered Medications Inactive Administered Medications - up to 3 most recent administrations Medication Order MAR Action Action Date Dose Rate Site dexamethasone (DECADRON) injection Given 09/03/2015 10:36 AM EDT 8 mg Intravenous, PRN, Starting on Sun09/03/15 at 1036, Until Sun09/03/15 at 1153, Anesthesia Intra-op, Routine fentaNYL 50 mcg/mL multi-dose injection Given 09/03/2015 11:04 AM EDT 50 mcg Intravenous, PRN, Starting on Sun09/03/15 at 1030, Until Sun09/03/15 at 1153, Pain, Anesthesia Intra-op, Routine Given 09/03/2015 10:30 AM EDT 100 mcg lactated ringers infusion 1,000 mL New Bag 09/03/2015 10:24 AM EDT 1,000 mL, at 100 mL/hr, Intravenous, CONTINUOUS, Starting on Sun09/03/15 at 0930, Until Sun09/03/15 at 1438, Day of Surgery (Day of Procedure) New Bag 09/03/2015 9:18 AM EDT 1,000 mLs 100 mL/hr lidocaine (PF) (XYLOCAINE) 100 mg/5 mL (2 %) Given 09/2015 10:32 AM EDT 50 mg injection Intravenous, PRN, Starting on Sun09/03/15 at 1032, Until Sun09/03/15 at 1153, Anesthesia Intra-op, Routine methylergonovine (METHERGINE) injection Given 09/03/2015 11:08 AM EDT 0.2 mg PRN, Starting on Sun09/03/15 at 1108, Until Sun09/03/15 at 1153, Anesthesia Intra-op, Routine midazolam (PF) (VERSED) 1 mg/mL multi-dose Given 09/03/2015 10:2 3 AM EDT 2 mg injection Intravenous, PRN, Starting on Sun09/03/15 at 1023, Until Sun09/03/15 at 1153, Sleep, Anesthesia Intra-op, Routine ondansetron (ZOFRAN) injection Given 09/03/2015 11:14 AM EDT 4 mg Intravenous, PRN, Starting on Sun09/03/15 at 1114, Until Sun09/03/15 at 1153, Nausea, Anesthesia Intra-op, Routine oxytocin (PITOCIN) 30 units in New Bag 09/03/2015 11:08 AM 1,0 00 mL/hr 1000 mL/hr sodium chloride 0.9% 500 mL EDT infusion CONTINUOUS PRN, Starting on Sun09/03/15 at 1108, Until Sun09/03/15 at 1153, Anesthesia Intra-op, Routine PHENYLephrine HCl in NS (PF) Given 09/03/2015 11:30 AM EDT 80 mc g (KYLE-SYNEPHRINE) 0.8 mg/10 mL (80 mcg/mL) multi-dose injection Syrg Intravenous, PRN, Starting on Sun09/03/15 at 1058, Until Sun09/03/15 at 1153, Anesthesia Intra-op, Routine Given 09/03/2015 11:18 AM EDT 80 mcg Given 09/03/2015 11:15 AM EDT 120 mcg propofol (DIPRIVAN) 10 mg/mL bolus injection Given 09/2015 11:13 AM EDT 20 mg (Anesthesia) Intravenous, PRN, Starting on Sun09/03/15 at 1032, Until Sun09/03/15 at 1153, Anesthesia Intra-op Given 09/03/2015 10:33 AM EDT 40 mg Given 09/03/2015 10:32 AM EDT 160 mg documented in this encounter Care Teams Senior It Specialist Relationship Specialty Start Date End Date Ulysses Reza MD PCP - General 01/18/10 07/20/16 [address] [place] [address] documented as of this encounter
--- OUTSIDE RECORDS SUMMARY | 2021-09-02 11:10 | XMS_ITS | Encounter Summary ---
:1975 Author Organization [facility] [place] [address] Care Team Providers Name Role Phone Ulysses Reza MD Primary Care Provider Encounter Details Date Type Department Care Team Description 07/12/2016 Hospital Encounter Radiology at [facility] Dipti Hunt MD [facility] [place] [address] OBSTETRICS & [phone] GYNECOLOGY [place], [place] [address] (Wo rk) Social History Tobacco Use Types [...] Date/Time Associated Diagnosis Comme nts US OB FOLLOW UP Routine 07/12/2016 3:45 PM Echogenic focus of Results for this EDT bowel of fetus procedure are in affecting antepartum the res ults care of mother section. documented in this encounter Results US [...] 04:40 pm) PATIENT INFO: ID #: ? [id number] ?: ??[birth year] (40 yrs) Name: ? CHELLY Carrillo ? Visit Date: 07/12/2016 03:25 pm ? LOLA PERFORMED BY: Performed By: ? Nette Gallardo RDMS Attending: ?Franck Woodward MD ? ?Alfreda Referred By: ?ANASTACIA PELAYO [facility] Location: ? [place] SERVICE(S) PROVIDED: ??UOBFOL - Efw - Growth - Whitney - I [id number] ? [id number] INDICATIONS: ??Echogenic bowel, Referred by Anastacia Rivera [...] 017 04:40 pm) PATIENT INFO: ID #: [id number] : 75 (40 y rs) Name: CHELLY Carrillo Visit Date: 07/12/2016 0 3:25 pm LOLA PERFORMED BY: Performed By: Nette Gallardo RDMS Attending: Franck Woodward MD Referred By: ANASTACIA PELAYO CNM Location: [place] SERVICE(S) PROVIDED: UOBFOL - Efw - Growth - [place] - [facility] [id number] INDICATIONS: Echogenic bowel, Referred by Anastacia jiménez [...] ORDERABLES documented in this encounter Visit Diagnoses Not on filedocumented in this encounter Care Teams Spot Man Relationship Specialty Start Date End Date Ulysses Reza MD PCP - General 01/18/10 07/20/16 [address] [place] [address] documented as of this encounter
--- OUTSIDE RECORDS SUMMARY | 2021-09-02 11:10 | XMS_ITS | Encounter Summary ---
:1975 Author Organization [facility] [place] [address] Care Team Providers Name Role Phone Taniya Wright MD Primary Care Provider Encounter Details Date Type Department Care Team Description 02/11/2007 Orders Only Radiology and Cardiology Apd Conversion, Results Results Provider, [address] [place] [id number] Social History Tobacco Use Types Packs/Day Years Used Date Never Assessed Sex Assigned at Date Recorded Not on file documented as of this encounter Plan of Treatment Not on filedocumented as of this encounter Procedures Procedure Name Priority Date/Time Associated Diagnosis Comme nts RPR Routine 02/11/2007 4:20 PM Results f or this EST procedure are i n the results section . documented in this encounter Results (ABNORMAL) RPR (02/11/2007 4:20 PM EST) [facility] gist Method Time Signature RPR NON REACTIVE NONREACTIVE [facility] (External CONVERSION Lab) Specimen (Source) Anatomical Collection Method Collection Time Re ceived Time Location / / Volume Laterality 02/11/2007 4:20 PM EST Results Provider Apd Conversion IMMUNOLOGY ORDERABL ES Performing Organization Address City/State/ZIP Code Phon e Number [facility] CONVERSION [address] [place], [place] [address] [facility] CONVERSION documented in this encounter Visit Diagnoses Not on filedocumented in this encounter Care Teams Analytical Technician Relationship Specialty Start Date End Date Taniya Wright MD PCP - General Family Medicine 06/13/17 09/22/20 [address] [place] [address] documented as of this encounter
--- OUTSIDE RECORDS SUMMARY | 2021-09-02 11:10 | XMS_ITS | Encounter Summary ---
:1975 Author Organization [facility] [place] [address] Care Team Providers Name Role Phone Ulysses Reza MD Primary Care Provider Encounter Details Date Type Department Care Team Description 08/10/2015 Telephone Obstetrics and Gynecology at [facility] Edda gilbert, [facility] Aruna wills OBSTETRICS & [place] [address] [place] [address] [phone] (Wo rk) Social History Tobacco Use Types Packs/Day Years Used Date Never Smoker Sex Assigned at Date Recorded Not on file documented as of this encounter Miscellaneous Notes Telephone Encounter - Edda [place], [place] - 08/10/2015 9:09 AM EDT Chelly was informed by her local provider of the following ABNORMAL results from her [employer] test. Result: Trisomy 21 HIGH RISK Greater than 99/100 Trisomy 18 Low Risk less than 1/10,000 Trisomy 13 Low Risk less than 1/10,000 Sex Female fetus XY analysis XY We reviewed that the positive predictive value of this result is 92%, therefore there is an 8% chance that this is false positive. Testing via amniocentesis is required for the most accurate diagnosis.Chorionic villus sampling is not the diagnostic test of choice to confirm these results as the cellsderived in this testing are those tested in [facility]. The couple would like to proceed with Amniocentesis. They would consider termination and we had reviewed the different methods of termination. The couple felt they would prefer an induction of labor and thus opted for the amniocentesis. They understand that some ultrasound findings may also help to endorse the likelihood of Down syndrome including unfused membranes. An appointment for SundayAugust 26 had been made for an amniocentesis. We briefly reviewed testing and turnaround time for preliminary result. 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 She is well informed. documented in this encounter Plan of Treatment Not on filedocumented as of this encounter Results US OB Detailed Morphology (08/27/2015 10:26 AM EDT) Anatomical Region Laterality Modality Pelvis, Abdomen Ultrasound Specimen (Source) Anatomical Collection Method Collection Time Re ceived Time Location / / Volume Laterality 08/27/2015 8:50 AM EDT Impressions 08/27/2015 10:35 AM EDT 2nd Trimester- ??EIF- ??Summary / Amnio centesis Single intrauterine with a ge stational age of 15w 4d based on LMP ??(05/10/15). ??Com posite age based on the current ultrasound alone i s 15w 5d. Amniotic fluid volume is Appropriate fo r gestational age. Current growth parameters are consisten t with prior dating indicating normal growth. Genetic sonogram shows an echogenic int ra cardiac focus. ??The remainder of the anatomy w as limited by early gestational age, but no anomalies are noted. Amniotic fluid volume is appropriate fo r gestational age. Guidance provided for amniocentesis. ?? The patient tolerated the procedure well; there wer e no complications. ?? heart rate obser marcelino post procedure. I ??viewed the images and agree with th jd above interpretation. ? Jd Woodward MD Electronically Signed Final Report ?? 10:35 am Narrative 08/27/2015 10:35 AM EDT OBSTETRICS REPORT ?(Signed Final 08/27/2015 10:35 am) PATIENT INFO: ID #: ? [id number] ?: ??[birth year] (39 yrs) Name: ? CHELLY Carrillo ? Visit Date: 08/27/2015 08:50 am ? LOLA PERFORMED BY: Performed By: ? Dennys RD, ??Baldo caal Attending: ?Jd Woodward MD ? ?Alfreda Referred By: ?FANNY CARRANZA-DEMOND Jimenez CNM SERVICE(S) PROVIDED: ??[facility] - Detailed Morphology - Genetics - [id number] ?[id number] ??[facility] - Genetic - ??Lung Maturity - [id number] ?[id number], [id number] INDICATIONS: ??Postvice harmony for DS and DAughter with ??DS; E - Coordinates with gestational age or ??more than one week OB HISTORY: Blood Type: ?? O- ? Height: ??5' 6 ?? Weight: ?? 146 ? BMI: ??23.56 : ?5 ? Term: ?? 3 ? SAB: ?? 1 Living: ? 3 EVALUATION: Num Of Fetuses: ? 1 Heart ? 147 Rate(bpm): Cardiac Activity: ?? Observed, normal r hythm Presentation: ? Cephalic Placenta: ? Anterior P. Cord Insertion: ??Within Normal Limi ts Amniotic Fluid JANIE FV: ?Appropriate for gestati onal age Comment: ?Unfused membranes --------- BIOMETRY: --------- BPD: ?32.5 ??mm ? G.Age: ?? 16w 1d OFD: ?40.4 ??mm HC: ?118.5 ??mm ? G.Age: ?? 15w 6d AC: ? 94.0 ??mm ? G.Age: ?? 15w 4d FL: ? 16.9 ??mm ? G.Age: ?? 15w 0d HUM: ?18.0 ??mm ? G.Age: ?? 15w 1d CER: ?14.7 ??mm ? G.Age: ?? 14w 5d NFT: ? 2.4 ??mm NB: ? 1.85 ??mm LV: ?7.5 ??mm CM: ?3.6 ??mm CI: ?80.4 ??% ? 70 - 86 FL/HC: ? 14.3 ??% ? 13.3 - 16.5 HC/AC: ? 1.26 ?1.05 - 1.39 FL/BPD: ?52.0 ??% FL/AC: ? 18.0 ??% ? 20 - 24 Est. FW: ? 122 ?? gm ? 0 lb 4 o z GESTATIONAL AGE: LMP: ? 15w 4d ?Date : ??05/10/15 ? AMANUEL: ?? 02/14/16 U/S Today: ? 15w 5d ?AMANUEL: ?? 02/13/16 Best: ?15w 4d ?? Det. By: ??LMP ??(05/10/15) ?AMANUEL: ?? 02/14/16 TARGETED ANATOMY: Central Nervous System Calvarium: ?Within Norm al Limits Intracranial: ? Within Normal Limits Cavum: ?Within Angella l Limits Lat. Ventricles: ?Within Normal Limits Cerebellum: ? Within Angella l Limits Choroid Plexus: ? Within Normal Limits Cisterna Magna: ? Within Normal Limits Spine Cervical: ? Visualized Thoracic: ? Visualized Lumbar: ? Visualized Sacral: ? Visualized Head/Neck Face: ? Visualize d Lips: ? Visualize d Nuchal Fold: ?Within Angella l Limits Eyes: ? Normal ?? lens / orbits Neck: ? Within No rmal Limits Profile: ?Visualized Thorax Thoracic Contour: ? Ribs appear nor mal Lungs: ?Visualize d Four Chamber: ? Echogenic int racardi Cardiac Motion: ? Normal Rhythm R Outflow Tract: ?Visualized L Outflow Tract: ?Visualized Aortic Arch: ?Visualized Cardiac Buckingham: ? Visualized 3 Vessel View: ?Visualized Diaphragm: ?Visualized Abdomen Ventral Wall: ? Visualized Stomach: ?Visualized Situs: ?Normal Liver: ?Visualize d Lt Kidney: ?Visualized Rt Kidney: ?Visualized Bladder: ?Visualized Bowel: ?Visualize d Spleen: ? Limited Vi ews Extremities Lt Humerus: ? Within Nomal Limits [...] WIthin Normal Limits Comment: ? Nasal Bone: ?? Visual ized GUIDED PROCEDURES: Type: ? Amniocentesis-Genetic FH Post Procedure: ?Normal RH Type: ?Negativ e Rh Immune Globulin: ? Pt. sent to [facility] for RhoGam injection Discharge Inst.: ?Given to karan babin Needle Insertions: ?22 guage x 1 Vol. Withdrawn: ? 20 cc of cl ear/lucrecia fluid Transplacental: ? Yes Complications: ?None CERVIX UTERUS ADNEXA: Left Ovary Size(cm) ? 2.44 ?? x ?? 1.97 ?? x ? ?1.31 ?Vol(ml): 3.3 Visualized Right Ovary Size(cm) ? 2.06 ?? x ?? 1.62 ?? x ? ?1.53 ?Vol(ml): 2.7 Visualized --------- COMMENTS: --------- PLEASE NOTE: The fetus is too small for complete morphological assessment. Procedure Note Jd Woodward MD - 08/27/2015For matting of this note might be different from the original. OBSTETRICS REPORT (Signed Final 016 10:35 am) PATIENT INFO: ID #: [id number] : 75 (39 y rs) Name: CHELLY Carrillo Visit Date: 08/27/2015 0 8:50 am LOLA PERFORMED BY: Performed By: Anne-Marie Noyoal RDMS Attending: Jd Woodward MD Referred By: FANNY CARRANZA-JAI [facility] SERVICE(S) PROVIDED: [facility] - Detailed Morphology - Genetics - [id number] UAMNIO - Genetic - Lung Maturity - [id number] INDICATIONS: Postvice harmony for DS and DAughter wi th DS; E - Coordinates with gestational ag e or more than one week OB HISTORY: Blood Type: O- Height: 5'6 Weight: 146 BMI: 23.56 : 5 Term: 3 SAB: 1 Livin EVALUATION: Num Of Fetuses: 1 Heart 147 Rate(bpm): Cardiac Activity: Observed, normal rhyt hm Presentation: Cephalic Placenta: Anterior P. Cord Insertion: Within Normal Limits Amniotic Fluid JANIE FV: Appropriate for gestational age Comment: Unfused membranes --------- BIOMETRY: --------- BPD: 32.5 mm G.Age: 16w 1d OFD: 40.4 mm HC: 118.5 mm G.Age: 15w 6d AC: 94.0 mm G.Age: 15w 4d FL: 16.9 mm G.Age: 15w 0d HUM: 18.0 mm G.Age: 15w 1d CER: 14.7 mm G.Age: 14w 5d NFT: 2.4 mm NB: 1.85 mm LV: 7.5 mm CM: 3.6 mm CI: 80.4 % 70 - 86 FL/HC: 14.3 % 13.3 - 16.5 HC/AC: 1.26 1.05 - 1.39 FL/BPD: 52.0 % FL/AC: 18.0 % 20 - 24 Est. FW: 122 gm 0 lb 4 oz GESTATIONAL AGE: LMP: 15w 4d Date: 05/10/15 AMANUEL: 6 U/S Today: 15w 5d AMANUEL: 02/13/16 Best: 15w 4d Det. By: LMP (05/10/15) ED TARGETED ANATOMY: Central Nervous System Calvarium: Within Normal Limits Intracranial: Within Normal Limits Cavum: Within Normal Limits Lat. Ventricles: Within Normal Limits Cerebellum: Within Normal Limits Choroid Plexus: Within Normal Limits Cisterna Magna: Within Normal Limits Spine Cervical: Visualized Thoracic: Visualized Lumbar: Visualized Sacral: Visualized Head/Neck Face: Visualized Lips: Visualized Nuchal Fold: Within Normal Limits Eyes: Normal lens / orbits Neck: Within Normal Limits Profile: Visualized Thorax Thoracic Contour: Ribs appear normal Lungs: Visualized Four Chamber: Echogenic intracardi Cardiac Motion: Normal Rhythm R Outflow Tract: Visualized L Outflow Tract: Visualized Aortic Arch: Visualized Cardiac Buckingham: Visualized 3 Vessel View: Visualized Diaphragm: Visualized Abdomen Ventral Wall: Visualized Stomach: Visualized Situs: Normal Liver: Visualized Lt Kidney: Visualized Rt Kidney: Visualized Bladder: Visualized Bowel: Visualized Spleen: Limited Views Extremities Lt Humerus: Within Nomal Limits Rt [...] WIthin Normal Limits Comment: Nasal Bone: Visualized GUIDED PROCEDURES: Type: Amniocentesis-Genetic FH Post Procedure: Normal RH Type: Negative Rh Immune Globulin: Pt. sent to clinic for RhoGam injection Discharge Inst.: Given to patient Needle Insertions: 22 guage x 1 Vol. Withdrawn: 20 cc of clear/lucrecia fl uid Transplacental: Yes Complications: None CERVIX UTERUS ADNEXA: Left Ovary Size(cm) 2.44 x 1.97 x 1.31 Vol(ml): 3. 3 Visualized Right Ovary Size(cm) 2.06 x 1.62 x 1.53 Vol(ml): 2. 7 Visualized --------- COMMENTS: --------- PLEASE NOTE: The fetus is too small for complete morphological assessment. IMPRESSION 2nd Trimester- EIF- Summary / Amniocent esis Single intrauterine with a ge stational age of 15w 4d based on LMP (05/10/15). Composi te age based on the current ultrasound alone i s 15w 5d. Amniotic fluid volume is Appropriate fo r gestational age. Current growth parameters are consisten t with prior dating indicating normal growth. Genetic sonogram shows an echogenic int ra cardiac focus. The remainder of the anatomy was limited by early gestational age, but no anomalies are noted. Amniotic fluid volume is appropriate fo r gestational age. Guidance provided for amniocentesis. Th e patient tolerated the procedure well; there wer e no complications. heart rate observe d post procedure. I viewed the images and agree with the above interpretation. Jd Woodward MD Electronically Signed Final Report 08/26 10:35 am Dipti Hunt MD IMG US OB ORDERABLES documented in this encounter Visit Diagnoses Diagnosis Abnormal findings on screening of mother Abnormal findings on screening AMA (advanced maternal age) multigravida 35+, second trimester Abnormal findings on screening of mother Abnormal findings on screening AMA (advanced maternal age) multigravida 35+, second trimester documented in this encounter Care Teams Pearl Restorer Relationship Specialty Start Date End Date Ulysses Reza MD PCP - General 01/18/10 07/20/16 [address] [place] [address] documented as of this encounter
--- OUTSIDE RECORDS SUMMARY | 2021-09-02 11:10 | XMS_ITS | Encounter Summary ---
:1975 [place] [address] Care Team Providers Name Role Phone Ulysses Reza MD Primary Care Provider Reason for Visit Auth/Cert Specialty Diagnoses / Procedures Referred By Contact Refer red To Contact Diagnoses trisomy 21 Procedures PRO INDUCED ABORTN BY DIL/EVAC INDUCED , DILATION & EVACUATION Referral ID Status Reason Start Date Expiration Date Visits Requ ested Visits Authorized [id number] 1 1 Encounter Details Date Type Department Care Team Description 09/03/2015 Hospital Encounter Short Stay Unit at Merced Pagan MD [facility] OBSTETRICS & [place] [address] Preop examination Jerome Padilla MD [facility] OBSTETRICS & [place] [address] [place] [id number] Social History Tobacco Use Types Packs/Day Years Used Date Never Smoker Alcohol Use Standard Drinks/Week Comments No 0 (1 standard drink = 0.6 oz pure alcoho l) Sex Assigned at Date Recorded Not on file documented as of this encounter Last Filed Vital Signs Vital Sign Reading Time Taken Comments Blood Pressure 121/67 09/03/2015 5:00 PM EDT Pulse 96 09/03/2015 5:00 PM EDT Temperature 36.6 ??C (97.9 ??F) 09/03/2015 5:00 PM EDT Respiratory Rate 18 09/03/2015 5:00 PM EDT Oxygen Saturation 99% 09/03/2015 5:00 PM EDT Inhaled Oxygen Concentration - - Weight 69.9 kg (154 lb) 09/03/2015 9:04 AM EDT Height 167.6 cm (5' 6) 09/03/2015 9:04 AM EDT Body Mass Index 24.86 09/03/2015 9:04 AM EDT documented in this encounter Discharge Instructions Patient InstructionsChastity Negrete MD - 09/03/2015 11:45 AM EDT PATIENT DISCHARGE INSTRUCTIONS Call your doctor if you develop: ?? A fever over 101 degrees ?? Severe pain that does not get better after you take pain medicine. ?? Heavy vaginal bleeding (bright red bleeding that soaks 1 or more pads each hours x 2 or more hours or passing blood clots that are larger than a golf ball) ?? Vaginal discharge that smells bad ?? Increasing pain, redness, or discharge Activity level: ?? Most women are able to return to work the day after the procedure ?? You may have some light vaginal bleeding. Wear sanitary pads if needed. Do not douche or use tampons for 2 weeks or until your doctor says it is okay. Diet: ?? You can eat your normal diet. If your stomach is upset, try bland, low-fat foods like plain rice,broiled chicken, toast, and yogurt. ?? Drink plenty of fluids (unless your doctor tells you not to). ?? You may want to use a stool softener such as Colace twice daily and Metamucil or Citrucel once ortwice daily to keep your bowel movements soft and regular. Medications: ?? Ibuprofen 800mg by mouth every 6 hours as needed for cramping ?? Ok to alternate with Tylenol Driving: ?? Do not drive until you are not feeling pain. Shower/Bath: ?? Showering is fine. Follow-up care is a coulter part of your treatment and safety. Follow-up with your primary provider. Be sure to make and go to all appointments, and call your doctor if you are having problems. It???salso a good idea to know your test results and keep a list of the medicines you take. documented in this encounter Medications at Time of Discharge Medication Sig Dispensed Refills Start Date End Date DOCOSAHEXANOIC ACID (DHA Take by mouth. 0 ORAL) PNV95/FERROUS FUMARATE/FA Take by mouth. 0 ( ORAL)Indications: Abnormal multiple marker screen in fetus methylergonovine Take 1 tablet by 3 tablet 0 09/03/2015 (METHERGINE) 0.2 mg Tablet mouth every 6 hours. Next dose at 7:30 PM ibuprofen (ADVIL;MOTRIN) Take 800 mg by 0 04/05/2016 800 mg Tablet mouth every 6 hours as needed for Pain. Reported on 04/05/2016 documented as of this encounter Progress Notes Rebecca Ennis RN - 09/03/2015 7:53 PM EDT Patient seen by team, cleared for discharge. Patient discharge instructions given to patient. Patient verbalizes understanding. IV removed. Partner with patient. Patient dressed, belongings with patient. Patient escorted by [facility]. Marlee Coffman MD - 09/03/2015 4:16 PM EDT Progress Note Patient ID: Kitty Ingram is a 39 y.o. who is POD#0 from a D and E for Trisomy 21 at 16w4d that was complicated by an EBL of 1200cc that was treated with 7 units cervical vasopressin, 30u Pitocin, 600mcg rectal misoprostol, .2mg of IM Methergine, and now a methergine series. Subjective: Patient reports that she is feeling much better. She denies dizziness or lightheadedness. She is feeling like herself and would like something to eat. Denies nausea, vomiting, passing clots, or feelingpalpitations. She has minimal pain. Objective: BP 107/69 (BP Location (NBP): Right arm, Patient Position: Lying) Pulse 79 Temp 36.4 ??C (97.5 ??F) (Oral) Resp 18 Ht 167.6 cm (5' 6) Wt 69.9 kg (154 lb) LMP 05/10/2015 SpO2 100% BMI 24.86 kg/m2 Manual HR taken in the 80s Gen: Appears pale, resting in bed, smiling, conversant Cardio: RRR Pulm: CTAB Abd: Soft, NTND : Uterus firm, non tender. Pad with one stripe 4cm x1cm over 90 minutes. LE: No ODIN Recent Labs 09/03/15 1155 09/02/15 0931 WBC 12.3* 8.9 HGB 11.0* 13.0 HCT 31.1* 37.3 PLATELET 157 211 Coags Lab Results Component Value Date INR 1.0 09/03/2015 PT 13.9 09/03/2015 PTT 26 09/03/2015 Fibrinogen 305 Assessment and Plan: Kitty Ingram is a 39 y.o. who is about 4 hours post op from a D+E complicated by an EBL of 1200cc. She is s/p 30u IV pitocin, 600 mcg rectal misoprostol, .2mg IM methergine, 7U intracervical vasopressin, and .2 mg PO oral methergine. Bleeding has improved substantially. She has a moderate amount of blood on her pad after 90 minutes. Discussed continuing methergine series for 3 more doses.Will advance diet. Will repeat hemoglobin at 1800. If it hasn't dropped precipitously, her bleeding is still appropriate, and she is able to ambulate will be able to d/c home later this evening. Discussed plan of care with Dr. Lezama. CHASTITY NEGRETE MD PGY4 09/03/2015 Addendum: Repeat Hb 10.5 from 11.0. Patient able to eat, drink and urinate. She no longer complains of dizziness, is feeling well and would like to go home. Bleeding on pad minimal. Marlee Coffman MD PGY1 09/03/2015 Associated attestation - Jerome Lezama MD - 09/06/2015 8:30 AM EDT I saw and evaluated Kitty Ingram. I agree with the findings and the plan of care as documented in the resident's note. MD Joseline CHAVEZ Chelsea A, RN - 09/03/2015 3:07 PM EDT Pt arrived from [facility] around 1430. A/Ox4. Vitals stable. Family at bedside. Per- Pad significant sangionous drainage, team notified. Pad changed. Will continue to monitor. Pain tolerable. Chastity Negrete MD - 09/03/2015 12:49 PM EDT Progress Note Patient ID: Kitty Ingram is a 39 y.o. who is POD#0 from a D and E for Trisomy 21 at 16w4d that was complicated by an EBL of 1200cc that was treated with 7 units cervical vasopressin, 30u Pitocin, 600mcg rectal misoprostol, and .2mg of Methergine. Subjective: Came to evaluate patient for vaginal bleeding s/p D and E. She soaked 2/3 of a pad between 11:40--> 12:15 and then a new pad was placed. I evaluated her at 12:28, approximately 13 minutes after second pad was placed and she had 6x3cm of blood on her pad. Patient reports she is feeling out of it, but thinks it was secondary to anesthesia. Reports she feels like she has a heavy period. Reports she had a post hemorrhage with her first delivery. Objective: BP 100/59 Pulse 65 Temp 36.1 ??C (97 ??F) (Temporal) Resp 14 Ht 167.6 cm (5' 6) Wt 69.9 kg (154 lb)LMP 05/10/2015 SpO2 98% BMI 24.86 kg/m2 Manual HR taken in the 70s Gen: Appears pale, resting in bed Cardio: RRR Pulm: CTAB Abd: Soft, NTND : Bimanual exam revealed firm uterus. Cervix felt closed. No clots expressed or palpated. Pad [id number] x3cm stripe. LE: No ODIN Recent Labs 09/03/15 1155 09/02/15 0931 WBC 12.3* 8.9 HGB 11.0* 13.0 HCT 31.1* 37.3 PLATELET 157 211 Coags Lab Results Component Value Date INR 1.0 09/03/2015 PT 13.9 09/03/2015 PTT 26 09/03/2015 Fibrinogen 305 Assessment and Plan: Kitty Ingram is a 39 y.o. who is about 90 minutes post op from a D and E at 16 w 4d for trisomy 21. Intraop ultrasound didn't reveal any retained products. Bimanual exam confirmed appropriate tone. Will start PO methergine series and reassess pad in 1 hr. If she is having persistent bleeding will place santiago balloon for uterine tamponade. Currently vital signs are stable and she is not coagulopathic. She did have a large drop in her hemoglobin c/w acute blood loss anemia. Coags are wnl at this time. Of note, she had a post hemorrhage with her first delivery, but she doesn't remember the details of it. Discussed plan of care with Dr. Lezama. CHASTITY NEGRETE MD PGY4 09/03/2015 Kylah Webb RN - 09/03/2015 12:[address] Negrete by to see and evaluate she will notify Dr. Lezama that pad changed at [address] Negrete, pt will get methergine po, asks that current pad she put in place at [address] and not be removed but that she be paged when pad is fully saturated. documented in this encounter H&P Notes Betsy Hines MD - 09/03/2015 9:55 AM EDT Inpatient [employer] - Admission Interval Note I have reviewed the pre-procedure H&P completed by Alpa Hall on 09/02/15. (x) Condition unchanged since H&P originally performed. Interval Note: The patient is in good health today, 3 lams inserted yesterday. Plan to proceed as listed on the consent form. No questions from patient or partner. No adverse reactions to medication inthe past. Desires full code. A copy of this document will be sent to the patient's Primary Care Physician and/or Referring Physician. BETSY HINES MD 09/03/2015 documented in this encounter Miscellaneous Notes Op Note - Chastity Negrete MD - 09/03/2015 12:11 PM EDT [facility] Operative Note Patient Name: Kitty Ingram : [id number] MR#: [id number] Case Date: 09/03/2015 Surgeon: Surgeon(s) and Role: * Jerome Lezama * Chastity Negrete MD Chief Resident * Betsy Hines MD US environmental assistant Preoperative diagnosis: 1.Viable intrauterine gestation at 16w4d 2. Trisomy 21 3. Desires elective termination of Postoperative diagnosis: Same Procedure(s): Dilation and Evacuation Findings:15 week size uterus. Cervix approximately Anesthesia: General Estimated Blood Loss: 1200 mL IVF :1200 mL UOP: 200cc clear yellow urine drained prior to procedure Specimens removed during surgery: Products of conception Disposition: awakened from anesthesia, extubated and taken to the recovery room in a stable condition, having suffered no apparent untoward event. Condition: doing well with some problems: s/p hemorrhage Complications: Hemorrhage requiring 30u Oxytocin, 7 u Vasopressin, 600mcg rectal misoprostol, .2mg IM methergine (Please see the Surgical Encounter Summary for any Implant and Specimen details pertinent to this patient.) HPI/Surgical Indications: Kitty Ingram is a 39 y.o. at 16w4d by LMP confirmed with US who desires a termination of for Trisomy 21.?? Most recent US c/w a 16w4d fetsus.?? She had 3laminaria placed yesterday and received Azithromycin for infection prophylaxis. Reviewed consent with the patient.?? Discussed risks such bleeding, infection, need for blood transfusion, uterine perforation, and damage to nearby organs.?? Also discussed rare risks such as hysterectomy.?? Discussed benefits and alternatives.?? Patient had time to ask questions which were answered.?? Patient signed consent and it was placed in the chart. Procedure Description: ?? Patient was taken to the OR where general anesthesia was administered without difficulty.?? The patient was placed in dorsal lithotomy position with Yellowfin stirrups and intermittent compression devices in place.?? An exam under anesthesia revealed a 15 week size anteverted uterus. Three laminaria were removed prior to the procedure. She was found to be approximately 1cm dilated.?? She was then prepped and draped in the usual sterile fashion.?? A time out was performed and all members of the team were in agreement to proceed. The bladder was drained of 200cc of urine. A speculum was placed in the vagina.?? An atraumatic tenaculum was used to grasp the anterior lip of the cervix.?? The cervix was easily dilated to a size 51 Tang.?? A 16 mm rigid curved cannula was advanced to the lower uterine segment under ultrasound zia nce.?? An electronic uterine aspiration device was attached and adequate suction was obtained, breaking the amniotic sac.?? The products of conception were then evacuated with Bierer forceps. She was noted to have heavy bleeding so .2mg of IM methergine was given.?? Once the fetus was evacuated the 16mm rigid cannula was replaced and the uterus was evacuated of remaining debris. She continued to have ongoing bleeding so a bimanual exam was performed which demonstrated uterine atony, the decision was made to give 600mcg of rectal misoprostol.?? A sharp currettage was performed in 360 degrees of rotation.?? The endometrial stripe was noted to be thin and echogenic. 30 u of oxytocin was then administ ered and the uterine tone improved. She continued to have a small trickle from her cervical ectropion so 7u of Vasopressin in 18cc of saline was injected paracervically. ?? All instruments were then removed from the uterus.?? The tenaculum was then removed from the cervix and she had improved hemostasis.?? All instruments were removed from the vagina.?? A bimanual exam after the conclusion of the procedure demonstrated good uterine tone and minimal bleeding.?? EBL was noted to be 1200 cc. The patient was then awakened from anesthesia.?? The patient was found to be in stable condition andthen transferred to the recovery room. Dr. Jerome Lezama was present for the entire procedure without any conflicting clinical responsibility. CHASTITY NEGRETE MD PGY4 09/03/2015 Associated attestation - Jerome Lezama MD - 09/03/2015 6:31 PM EDT Attestation: Case Date: 09/03/2015 I was present and I participated during the entire procedure (does not need to include opening and closing). JEROME LEZAMA MD 09/03/2015 Brief Op Note - Jerome Lezama MD - 09/03/2015 11:31 AM EDT Brief Operative Note Patient Name: Kitty Ingram : [id number] MR#: [id number] Case Date: 09/03/2015 Surgeon: Surgeon(s) and Role: * Merced Miller MD - Primary * Betsy Hines MD * Chastity Negrete MD Preoperative diagnosis: trisomy 21 Postoperative diagnosis: trisomy 21 Procedure(s): INDUCED , DILATION & EVACUATION Anesthesia: General Findings: gravid uterus, mercado breech IUP. Complete uterine evacuation confirmed by intraoperative ultrasound guidance. Complications: hemorrhage requir Fluids: 1200mL Estimated Blood Loss: 1200 mL Drains: na Disposition: awakened from anesthesia, extubated and taken to the recovery room in a stable condition, having suffered no apparent untoward event. Condition: doing well without problems Infection Bundle used? N/A Attestation: Case Date: 09/03/2015 I was present and I participated during the entire procedure (does not need to include opening and closing). (Please see the Surgical Encounter Summary for any Implant and Specimen details pertinent to this patient.) documented in this encounter Plan of Treatment Not on filedocumented as of this encounter Procedures Procedure Name Priority Date/Time Associated Comments Diagnosis HEMOGLOBIN AND Routine 09/03/2015 6:05 PM Results for this HEMATOCRIT, BLOOD EDT procedure are in the results section. ABORH TYPE MANUAL Routine 09/03/2015 1:32 PM Resu lts for this EDT procedure are i n the results section. SELECTED CELL SCREEN Routine 09/03/2015 1:32 PM R esults for this EDT procedure are i n the results section. HEMOGRAM Routine 09/03/2015 11:55 Results for this AM EDT procedure are i n the results section. APTT Routine 09/03/2015 11:55 Results for this AM EDT procedure are i n the results section. PROTHROMBIN TIME Routine 09/03/2015 11:55 Results for this AM EDT procedure are i n the results section. FIBRINOGEN Routine 09/03/2015 11:55 Results for this AM EDT procedure are i n the results section. ANTIBODY SCREEN STAT 09/03/2015 11:55 Results for this AM EDT procedure are i n the results section. TYPE AND SCREEN STAT 09/03/2015 11:55 ([facility]) AM EDT SPECIMEN TO PATHOLOGY Routine 09/03/2015 11:33 Re sults for this AM EDT procedure are i n the results section. SPECIMEN TO PATHOLOGY Routine 09/03/2015 11:15 Re sults for this AM EDT procedure are i n the results section. SURGICAL PATHOLOGY Routine 09/03/2015 11:07 Resul ts for this REPORT AM EDT procedure are i n the results section. INDUCED , Yes 09/03/2015 10:27 trisomy 21 DILATION & EVACUATION AM EDT (WRVU 5.65) documented in this encounter Results (ABNORMAL) Hemoglobin and Hematocrit, blood (09/03/2015 6:05 PM EDT) P athologist Signature Hemoglobin 10.5 (L) 11.2 - [facility] 15.7 gm/dL [facility] Hematocrit 29.6 (L) 34.0 - [facility] 45.0 % [facility] Specimen Anatomical Collection Method Collection Time Receive d Time (Source) Location / / Volume Laterality Blood specimen 09/03/2015 6:05 PM 016 6:22 (specimen) EDT PM EDT Resulting Agency Comment Spec In Lab Merced Valle MD HEMATOLOGY ORDERABLES Performing Organization Address City/State/[place] [address] Selected Cell Screen (09/03/2015 1:32 PM EDT) Component Value Ref Test Analysis Performed At [facility] Range Method Time Signature Ab Screen Previously identified passiv e Anti D due to Rhogam administered on 08/26/14. No DIANE Jennifer alloantibodies detected. [facility] Specimen Anatomical Collection Method Collection Time Receive d Time (Source) Location / / Volume Laterality Blood specimen Venous Draw / 09/03/2015 1:32 PM 2015 1:32 (specimen) Unknown EDT PM EDT Resulting Agency Comment Spec In Lab Merced Valle MD BLOOD BANK ORDERABLES Performing Organization Address City/State/ZIP Code Phon e Number [address] ABORh Type Manual (09/03/2015 1:32 PM EDT) [facility] Method Time Signature Expires at 09/29/2015 DIANE TAMIR [id number] on: [facility] ABORh Type O Neg [facility] Specimen Anatomical Collection Method Collection Time Receive d Time (Source) Location / / Volume Laterality Blood specimen Venous Draw / 09/03/2015 1:32 PM 2015 1:32 (specimen) Unknown EDT PM EDT Resulting Agency Comment Spec In Lab Merced Valle MD BLOOD BANK ORDERABLES Performing Organization Address City/State/[place] [address] Antibody screen (09/03/2015 11:55 AM EDT) [facility] Method Time Signature Ab Screen NT [facility] LABORATORY Expires at 09/06/2015 DIANE TAMIR 2351 on: [facility] Specimen Anatomical Collection Method Collection Time Receive d Time (Source) Location / / Volume Laterality Blood specimen 09/03/2015 11:55 6 (specimen) AM EDT 12:08 PM EDT Resulting Agency Comment Spec In Lab Merced Valle MD BLOOD BANK ORDERABLES Performing Organization Address City/State/[place] [address] APTT (09/03/2015 11:55 AM EDT) P athologist Signature PTT 26 25 - 35 sec [facility] Comment: The recommended therapeutic range for fu ll dose, unfractionated heparin at [facility] is 80 ? 114 seconds. The use of the anti-Xa (heparin) level rather than the PTT is recommended for monitoring anticoagul ation intensity in critically ill patients receiving unfractionated hepari n by continuous IV infusion. Specimen Anatomical Collection Method Collection Time Receive d Time (Source) Location / / Volume Laterality Blood specimen 09/03/2015 11:55 6 (specimen) AM EDT 12:15 PM EDT Resulting Agency Comment Spec In Lab Merced Valle MD HEMATOLOGY ORDERABLES Performing Organization Address City/[facility] [place] [address] Prothrombin Time (09/03/2015 11:55 AM EDT) athologist Signature PT 13.9 12.0 - 15.0 [facility] LABORATORY Comment: An INR <2.0 indicates adequate procoagul ant activity for hemostasis in most patients without underlying bleeding dis orders, though the INR may not adequately reflect hemostatic capacity i n patients with liver disease and synthetic impairment. The recommended ta rget INR range for therapeutic anticoagulation is 2.0 ? 3.0 for most applications, though lower and higher ranges may be appropriate depending on c linical circumstances. INR 1.0 0.9 - 1.1 [facility] Specimen Anatomical Collection Method Collection Time Receive d Time (Source) Location / / Volume Laterality Blood specimen 09/03/2015 11:55 6 (specimen) AM EDT 12:15 PM EDT Resulting Agency Comment Spec In Lab Merced Valle MD HEMATOLOGY ORDERABLES Performing Organization Address City/[facility] [place] [address] (ABNORMAL) Hemogram (09/03/2015 11:55 AM EDT) athologist Signature WBC 12.3 (H) 4.0 - 10.0 [facility] x10(3)/[facility] LABORATORY RBC 3.39 (L) 3.93 - DIANE CHAMBERLAINTAMIR 5.22 [facility] x10(6)/[facility] LABORATORY Hemoglobin 11.0 (L) 11.2 - DIANE CHAMBERLAINTAMIR 15.7 gm/dL [facility] Hematocrit 31.1 (L) 34.0 - DIANE CABACOCK 45.0 % [facility] MCV 91.7 79.0 - [facility] TAMIR 94.0 [facility] LABORATORY MCH 32.4 (H) 26.6 - DIANE CHAMBERLAINTAMIR 32.2 pg [facility] MCHC 35.4 32.0 - DIANE CHAMBERLAINTAMIR 36.5 gm/dL [facility] Platelets 157 145 - 370 DIANE TAMIR x10(3)/[facility] LABORATORY RDWSD 42.7 35.0 - DIANE CABACOCK 46.0 [facility] LABORATORY RDWCV 12.7 10.9 - DIANE CABACOCK 14.4 % [facility] MPV 10.2 9.0 - 12.0 DIANE TAMIR fL [facility] Specimen Anatomical Collection Method Collection Time Receive d Time (Source) Location / / Volume Laterality Blood specimen 09/03/2015 11:55 6 (specimen) AM EDT 12:15 PM EDT Resulting Agency Comment Spec In Lab Merced Valle MD HEMATOLOGY ORDERABLES Performing Organization Address City/State/ZIP Code Phon e Number [address] Fibrinogen (09/03/2015 11:55 AM EDT) athologist Signature Fibrinogen 305 175 - 450 DIANE TAMIR mg/dL [facility] Comment: A fibrinogen level >100 mg/dL is adequat e for hemostasis in most patients without underlying bleeding disorders. Specimen Anatomical Collection Method Collection Time Receive d Time (Source) Location / / Volume Laterality Blood specimen 09/03/2015 11:55 6 (specimen) AM EDT 12:15 PM EDT Resulting Agency Comment Spec In Lab Merced Valle MD HEMATOLOGY ORDERABLES Performing Organization Address City/State/ZIP Code Phon e Number [address] Specimen to Pathology (surgical or derm) (09/03/2015 11:33 AM EDT) Specimen Anatomical Collection Method Collection Time Receive d Time (Source) Location / / Volume Laterality AP Specimen 09/03/2015 11:33 09/03/2015 AM EDT 11:33 AM EDT Narrative [facility] - 09/03/2015 11:33 AM EDT Specimen requisition ordered. ??Separate Pathology report to follow Merced Valle MD PATHOLOGY/CYTOLOGY ORDERABLE S Performing Organization Address City/[facility]/[place] [address] Specimen to Pathology (surgical or derm) (09/03/2015 11:15 AM EDT) Specimen Anatomical Collection Method Collection Time Receive d Time (Source) Location / / Volume Laterality AP Specimen 09/03/2015 11:15 09/03/2015 AM EDT 11:15 AM EDT Narrative [facility] [place] - 09/03/2015 11:15 AM EDT Specimen requisition ordered. ??Separate Pathology report to follow Merced Valle MD PATHOLOGY/CYTOLOGY ORDERABLE S Performing Organization Address City/[facility]/[place] [address] Surgical Pathology Report (09/03/2015 11:07 AM EDT) [facility] Method Time Signature Surgical [id number] ? Location: [facility]; [facility]; A [facility] Report The signing pathologist has (i) examined the relevant preparation(s) for the [facility] specimen(s) and (ii) rendered or confirmed the diagnosis(es) . HOSPITAL LABORATORY . ?Surgic al Pathology DIAGNOSIS Products of conception (clinical trisomy 21). CR-0 09/07/15 JLG 09/07/15 Verified by: ? Austin SCHWARTZ, Sawyer Merlos ?Pathologist ?(Electronic Signature ) The attending pathologist whose signature appears on this re port has reviewed all diagnostic slides and has edited the gross and/ or microscopic portion of the report in satya dering the final pathologic diagnosis. CLINICAL INFORMATION Specimen Submitted: A - Products of conception Clinical History: Trisomy 21 Clinical Diagnosis: Same SPECIMEN PROCESSING A - ??Labeled/Fixative: Products of conception, fresh. Quantity/Size: Fragments, 20.5 x 17.0 x 2.2 cm. Tissue Description: Hemorrha gic and papillary soft tissues and portions of clotted blood ?? Tissue: Identified. ??Placental Tissue: Identified. ??Was tissue sent from Surgical Pathology to [facility]? N o. Sections/Processing: (R1) ??ams/ejr Specimen (Source) Anatomical Collection Method Collection Time Re ceived Time Location / / Volume Laterality 09/03/2015 11:07 AM EDT Merced Valle MD PATHOLOGY/CYTOLOGY ORDERABLE S Performing Organization Address City/State/[place] [address] documented in this encounter Visit Diagnoses Diagnosis Preop examination Preoperative examination, unspecified anomaly Multiple congenital anomalies, so descri bed documented in this encounter Admitting Diagnoses Diagnosis anomaly Multiple congenital anomalies, so descri bed documented in this encounter Administered Medications Inactive Administered Medications - up to 3 most recent administrations Medication Order MAR Action Action Date Dose Rate Site acetaminophen (TYLENOL) tablet Given 09/03/2015 9:20 AM EDT 1,00 0 mg 1,000 mg 1,000 mg, Oral, ONCE, 1 dose, On Sun09/03/15 at 0930, Maximum dose of acetaminophen is 4000 mg from all sources in 24 hours., Day of Surgery (Day of Procedure), Routine doxycycline monohydrate (MONODOX) capsule 200 Given 1:32 PM EDT 200 mg mg 200 mg, Oral, ONCE, 1 dose, On Sun09/03/15 at 1215, Prior to discharge, Routine ibuprofen (ADVIL;MOTRIN) tablet 600 mg Given 09/03/2015 7:43 PM EDT 600 mg 600 mg, Oral, ONCE, 1 dose, On Sun09/03/15 at 1945, Administer orally with milk or food to minimize GI irritation. Maximum dose of 3200 mg from all sources in 24 hours, STAT lactated ringers infusion 1,000 mL New Bag 09/03/2015 10:24 AM EDT 1,000 mL, at 100 mL/hr, Intravenous, CONTINUOUS, Starting on Sun09/03/15 at 0930, Until Sun09/03/15 at 1438, Day of Surgery (Day of Procedure) New Bag 09/03/2015 9:18 AM EDT 1,000 mLs 100 mL/hr lactated ringers infusion 1,000 New Bag 09/03/2015 3:20 PM EDT 1,000 mLs 100 mL/hr mL 1,000 mL, at 100 mL/hr, Intravenous, CONTINUOUS, Starting on Sun09/03/15 at 1215, Until Sun09/03/15 at 2252 methylergonovine (METHERGINE) tablet 0.2 mg Given 09/03/2015 6:22 PM EDT 0.2 mg 0.2 mg, Oral, EVERY 6 HOURS SCHEDULED, First dose on Sun09/03/15 at 1400, Until Discontinued, Routine Given 09/03/2015 1:32 PM EDT 0.2 mg ondansetron (ZOFRAN) injection 4 mg Given 09/03/2015 11:00 AM EDT 4 mg 4 mg, Intravenous, EVERY 30 MIN PRN, Starting on Sun09/03/15 at 1143, Until Sun09/03/15 at 1438, Nausea, May repeat 4 mg once in 30 minutes. If multiple antiemetics ordered, use ondansetron first and if ineffective use prochlorperazine second and if ineffective use promethazine, PACU Recovery documented in this encounter Active and Recently Administered Medications Times are shown in EDT. Scheduled Medication Order 09/01/2015 09/02/2015 09/03/2015 acetaminophen (TYLENOL) tablet 1,000 mg (COMPLETED) 0920 (Given - Provider: Sara Wiley RN) 1,000 mg, Oral, ONCE, 1 dose, Sun09/03/15 at 0930, Maximum dose of acetaminophen is 4000 mg from all sources in 24 hours., Day of Surgery (Day of Procedure), Routine doxycycline monohydrate (MONODOX) capsule 200 mg (COMPLETED) 133 (Given - Provider: Lori Marrero, KLAUDIA) 200 mg, Oral, ONCE, 1 dose, Sun09/03/15 at 1215, Prior to dischar ge, Routine ibuprofen (ADVIL;MOTRIN) tablet 600 mg (COMPLETED) 1942 (Given - Provider: Rebecca Ennis, KLAUDIA) 600 mg, Oral, ONCE, 1 dose, On Sun 6 at 1945, Administer orally with milk or food to minimize GI irritation. Maximum dose of 3200 mg from all sources in 24 hours, STAT methylergonovine (METHERGINE) tablet 0.2 mg 133 (Given - Provider: Lori Marrero, KLAUDIA)182 (Given - Provider: Princess Trevizo, KLAUDIA) 0.2 mg, Oral, EVERY 6 HOURS SCHEDULED, F irst dose on Sun09/03/15 at 1400, Until Discontinued, Routine Continuous Medication Order 09/01/2015 09/02/2015 09/03/2015 lactated ringers infusion 1,000 mL 0918 (New Bag - Provider: Sara Wiley RN)1024 (New Bag - Provider: Tom Hinton MD) 1,000 mL, at 100 mL/hr, Intravenous, CON TINUOUS, Starting Sun09/03/15 at 0930, Until Sun09/03/15 at 1438, Day of Surgery (Day of Procedure) lactated ringers infusion 1,000 mL 1520 (New Bag - Provider: Princess Trevizo, KLAUDAI) 1,000 mL, at 100 mL/hr, Intravenous, CON TINUOUS, Starting Sun09/03/15 at 1215, Until Sun09/03/15 at 2252 PRN Medication Order 09/01/2015 09/02/2015 09/03/2015 acetaminophen (TYLENOL) tablet 650 mg 650 mg, Oral, EVERY 6 HOURS PRN, Startin g Sun09/03/15 at 1142, Until Sun09/03/15 at 2252, Pain, Use acetaminophen first, Routine lidocaine (XYLOCAINE) 10 mg/mL (1 %) injection 3 mg 3 mg (0.3 mL), Subcutaneous, ONCE PRN, 1 dose, Starting Sun09/03/15 at 0904, Until Sun09/03/15 at 1438, for discomfort with PIV insertion, Day of Surgery (Day of Procedure), Routine misoprostol (CYTOTEC) tablet (CANCELED) 1114 (Given - Provider: Merced Miller MD - Comment: Per MD order.) ONCE PRN, Starting Sun09/03/15 at 1114, U ntil Sun09/03/15 at 2252, Intra-Operative (Intra-Procedure), Routine ondansetron (ZOFRAN) injection 4 mg (CANCELED) 1100 (Given - Provider: Lori Marrero RN) 4 mg, Intravenous, EVERY 30 MIN PRN, Sta rting Sun09/03/15 at 1143, Until Sun09/03/15 at 1438, Nausea, May repeat 4 mg once in 30 minutes. If multiple antiemetics ordered, use ondansetron first and if in effective use prochlorperazine second an d if ineffective use promethazine, PACU Recovery oxyCODONE (ROXICODONE) immediate release tablet 5 mg 5 mg, Oral, EVERY 3 HOURS PRN, Starting Sun09/03/15 at 1142, Until Sun09/03/15 at 2252, Pain, May repeat once within 30-60 minutes if pain unrelieved., Routine sodium chloride 0.9 % flush 5-20 mL 5-20 mL, Intravenous, EVERY 1 MIN PRN, S tarting Sun09/03/15 at 0904, Until Sun09/03/15 at 1438, flush, Flush pertains to all indwelling lines. Flush per protocol found in the job aid using the link provid ed on this medication record., Day of Surgery (Day of Procedure) , Routine vasopressin (VASOSTRICT) injection (CANCELED) 1140 (Given - Provider: Merced Miller MD) ONCE PRN, Starting Sun09/03/15 at 1140, U ntil Sun09/03/15 at 2252, Intra-Operative (Intra-Procedure), Routine documented in this encounter Care Teams Entry Engineer Relationship Specialty Start Date End Date Ulysses Reza MD PCP - General 01/18/10 07/20/16 [address] [place] [address] documented as of this encounter
--- OUTSIDE RECORDS SUMMARY | 2021-09-02 11:10 | XMS_ITS | Encounter Summary ---
:1975 Author Organization [facility] [place] [address] Care Team Providers Name Role Phone Ulysses Reza MD Primary Care Provider Reason for Visit Auth/Cert Specialty Diagnoses / Procedures Referred By Contact Refer red To Contact Diagnoses trisomy 21 Procedures PRO INDUCED ABORTN BY DIL/EVAC INDUCED , DILATION & EVACUATION Referral ID Status Reason Start Date Expiration Date Visits Requ ested Visits Authorized [id number] 1 1 Encounter Details Date Type Department Care Team Description 09/03/2015 Surgery Main Operating Room Merced Valle I NDUCED , Ana Rogers MD D[facility]ATION & EVACUATION [facility] (WRU 5.[facility]) [facility] [address] [employer] [facility] [place] [address] GYNECOLOGY [phone] [place], [place] [address] (Wo rk) Social History Tobacco Use Types Packs/Day Years Used Date Never Smoker Alcohol Use Standard Drinks/Week Comments No 0 (1 standard drink = 0.6 oz pure alcoho l) Sex Assigned at Date Recorded Not on file documented as of this encounter Last Filed Vital Signs Vital Sign Reading Time Taken Comments Blood Pressure 100/61 09/03/2015 9:04 AM EDT Pulse 68 09/03/2015 9:04 AM EDT Temperature 37.1 ??C (98.8 ??F) 09/03/2015 9:04 AM EDT Respiratory Rate 14 09/03/2015 9:04 AM EDT Oxygen Saturation 100% 09/03/2015 9:04 AM EDT Inhaled Oxygen Concentration - - Weight [...] dressed, belongings with patient. Patient escorted by [facility] in wheelchair to the rush center entrance. Marlee Coffman MD - 09/03/2015 4:16 PM [...] 09/03/2015 3:07 PM EDT Pt arrived from [facility] around 1430. A/Ox4. Vitals stable. Family [...] closed. No clots expressed or palpated. Pad [id number] x3cm stripe. LE: No ODIN Recent Labs [...] MD - 09/03/2015 9:55 AM EDT Inpatient LEAD GENERATION REPRESENTATIVE - Admission Interval Note I have reviewed [...] Negrete MD - 09/03/2015 12:11 PM EDT [facility] Operative Note Patient Name: Kitty Ingram : [id number] MR#: [id number] Case Date: 09/03/2015 Surgeon: Surgeon(s) and Role: * Jerome Lezama * Chastity Negrete MD Chief Resident * Betsy Hines MD US campaign assistant Preoperative diagnosis: 1.Viable intrauterine gestation at [...] Operative Note Patient Name: Kitty Ingram : [id number] MR#: [id number] Case Date: 09/03/2015 Surgeon: Surgeon(s) and Role: [...] section. TYPE AND SCREEN STAT 09/03/2015 11:55 ([facility] AM EDT SPECIMEN TO PATHOLOGY Routine 09/03/2015 [...] and Hematocrit, blood (09/03/2015 6:05 PM EDT) athologist Signature Hemoglobin 10.5 (L) 11.2 - [facility] 15.7 gm/dL [facility] Hematocrit 29.6 (L) 34.0 - [facility] 45.0 % [facility] Specimen Anatomical Collection Method Collection Time Receive d Time (Source) Location / / Volume Laterality Blood specimen 09/03/2015 6:05 PM 016 6:22 (specimen) EDT PM EDT Resulting Agency Comment Spec In Lab Merced Valle MD HEMATOLOGY ORDERABLES Performing Organization Address City/State/[place] [address] Selected Cell Screen (09/03/2015 1:32 PM EDT) Component Value Ref Test Analysis Performed At [facility] gist Range Method Time Signature Ab Screen Previously identified passiv e Anti D due to Rhogam administered on 08/26/14. No [facility] alloantibodies detected. [facility] Specimen Anatomical Collection Method Collection Time Receive d Time (Source) Location / / Volume Laterality Blood specimen Venous Draw / 09/03/2015 1:32 PM 2015 1:32 (specimen) Unknown EDT PM EDT Resulting Agency Comment Spec In Lab Merced Valle MD BLOOD BANK ORDERABLES Performing Organization Address City/State/[place] [address] ABORh Type Manual (09/03/2015 1:32 PM EDT) [facility] Method Time Signature Expires at 09/29/2015 ANA TAMIR 235 on: [facility] ABORh Type O Neg [facility] Specimen Anatomical Collection Method Collection Time Receive d Time (Source) Location / / Volume Laterality Blood specimen Venous Draw / 09/03/2015 1:32 PM 2015 1:32 (specimen) Unknown EDT PM EDT Resulting Agency Comment Spec In Lab Merced Valle MD BLOOD BANK ORDERABLES Performing Organization Address City/[facility]/[place] [address] Antibody screen (09/03/2015 11:55 AM EDT) [facility] Method Time Signature Ab Screen NT [facility] LABORATORY Expires at 09/06/2015 ANA TAMIR 2354 on: [facility] Specimen Anatomical Collection Method Collection Time Receive d Time (Source) Location / / Volume Laterality Blood specimen 09/03/2015 11:55 6 (specimen) AM EDT 12:08 PM EDT Resulting Agency Comment Spec In Lab Merced Valle MD BLOOD BANK ORDERABLES Performing Organization Address City/State/[place] [address] APTT (09/03/2015 11:55 AM EDT) P athologist Signature PTT 26 25 - 35 sec [facility] Comment: The recommended therapeutic range for fu ll dose, unfractionated heparin at [facility] is 80 ? 114 seconds. The use [...] Valle MD HEMATOLOGY ORDERABLES Performing Organization Address City/[facility] [place] [address] Prothrombin Time (09/03/2015 11:55 AM EDT) P athologist Signature PT 13.9 12.0 - 15.0 [facility] LABORATORY Comment: An INR <2.0 indicates adequate [...] linical circumstances. INR 1.0 0.9 - 1.1 [facility] Specimen Anatomical Collection Method Collection Time Receive d Time (Source) Location / / Volume Laterality Blood specimen 09/03/2015 11:55 6 (specimen) AM EDT 12:15 PM EDT Resulting Agency Comment Spec In Lab Merced Valle MD HEMATOLOGY ORDERABLES Performing Organization Address City/[facility] Phon e Number [place] [phone] (ABNORMAL) Hemogram (09/03/2015 11:55 AM EDT) P athologist Signature WBC 12.3 (H) 4.0 - 10.0 [facility] x10(3)/[facility] LABORATORY RBC 3.39 (L) 3.93 - [facility] 5.22 [facility] x10(6)/[facility] LABORATORY Hemoglobin 11.0 (L) 11.2 - [facility] [place] 15.7 gm/dL [facility] Hematocrit 31.1 (L) 34.0 - [facility] [place] 45.0 % [facility] MCV 91.7 79.0 - [facility] [place] 94.0 [facility]ORATORY MCH 32.4 (H) 26.6 - [facility] [place] 32.2 pg [facility] MCHC 35.4 32.0 - [facility] [place] 36.5 gm/dL [facility] Platelets 157 145 - 370 [facility] [place] x10(3)/[facility] LABORATORY RDWSD 42.7 35.0 - [facility] [place] 46.0 [facility] LABORATORY RDWCV 12.7 10.9 - [facility] [place] 14.4 % [facility] MPV 10.2 9.0 - 12.0 ANA TAMIR [facility] LABORATORY Specimen Anatomical Collection Method Collection Time Receive d Time (Source) Location / / Volume Laterality Blood specimen 09/03/2015 11:55 6 (specimen) AM EDT 12:15 PM EDT Resulting Agency Comment Spec In Lab Merced Valle MD HEMATOLOGY ORDERABLES Performing Organization Address City/State/ZIP Code Phon e Number [address] Fibrinogen (09/03/2015 11:55 AM EDT) P athologist Signature Fibrinogen 305 175 - 450 ANA TAMIR mg/dL [facility] Comment: A fibrinogen level >100 mg/dL [...] Organization Address City/State/ZIP Code Phon e Number [address] Specimen to Pathology (surgical or derm) (09/03/2015 11:33 AM EDT) Specimen Anatomical Collection Method Collection Time Receive d Time (Source) Location / / Volume Laterality AP Specimen 09/03/2015 11:33 09/03/2015 AM EDT 11:33 AM EDT Narrative [facility] - 09/03/2015 11:33 AM EDT Specimen requisition ordered. ??Separate Pathology report to follow Merced Valle MD PATHOLOGY/CYTOLOGY ORDERABLE S Performing Organization Address [facility]/ZIP Code Phon e Number [address] Specimen to Pathology (surgical or derm) (09/03/2015 11:15 AM EDT) Specimen Anatomical Collection Method Collection Time Receive d Time (Source) Location / / Volume Laterality AP Specimen 09/03/2015 11:15 09/03/2015 AM EDT 11:15 AM EDT Narrative [facility] - 09/03/2015 11:15 AM EDT Specimen requisition ordered. ??Separate Pathology report to follow Merced Valle MD PATHOLOGY/CYTOLOGY ORDERABLE S Performing Organization Address City/[facility] [place] [address] Surgical Pathology Report (09/03/2015 11:07 AM EDT) [facility] gist Method Time Signature Surgical [id number] ? Location: [facility]; [facility]; A [facility] Report The signing pathologist has (i) examined the relevant preparation(s) for the [facility] specimen(s) and (ii) rendered or confirmed the diagnosis(es) . HOSPITAL LABORATORY . ?Surgic al Pathology DIAGNOSIS Products of conception (clinical trisomy 21). CR-0 09/07/15 JLG 09/07/15 Verified by: ? Sawyer Avila MD ?Pathologist ?(Electronic Signature ) The attending pathologist [...] Organization Address City/State/[place] [address] documented in this encounter Visit Diagnoses Not on filedocumented in this encounter Admitting Diagnoses Diagnosis anomaly [...] Given 09/03/2015 1:32 PM EDT 0.2 mg misoprostol (CYTOTEC) tablet Given 09/03/2015 11:14 AM 600 mcg 20-Other (document ONCE PRN, Starting on Sun EDT in comment section) 09/03/15 at 1114, Until Sun09/03/15 at 2252, Intra-Operative (Intra-Procedure), Routine ondansetron (ZOFRAN) injection 4 mg Given 09/03/2015 11:00 AM EDT 4 mg 4 mg, Intravenous, EVERY 30 MIN PRN, Starting on Sun09/03/15 at 1143, Until Sun09/03/15 at 1438, Nausea, May repeat 4 mg once in 30 minutes. If multiple antiemetics ordered, use ondansetron first and if ineffective use prochlorperazine second and if ineffective use promethazine, PACU Recovery vasopressin (VASOSTRICT) Given 09/03/2015 11:40 AM 18 Units 19- Surgical Site injection EDT ONCE PRN, Starting on Sun09/03/15 at 1140, Until Sun09/03/15 at 2252, Intra-Operative (Intra-Procedure), Routine documented in this encounter Active and Recently Administered Medications Times are shown in EDT. Scheduled Medication Order 09/01/2015 09/02/2015 09/03/2015 acetaminophen (TYLENOL) tablet 1,000 mg (COMPLETED) 0920 (Given - Provider: Sara Wiley, RN) 1,000 mg, Oral, ONCE, 1 dose, Sun09/03/15 at 0930, Maximum dose of acetaminophen is 4000 mg from all sources in 24 hours., Day of Surgery (Day of Procedure), Routine doxycycline monohydrate (MONODOX) capsule 200 mg (COMPLETED) 1332 (Given - Provider: Lori Marrero RN) 200 mg, Oral, ONCE, 1 dose, Sun09/03/15 at 1215, Prior to dischar ge, Routine ibuprofen (ADVIL;MOTRIN) tablet 600 mg (COMPLETED) 194 (Given - Provider: Rebecca Ennis RN) 600 mg, Oral, ONCE, 1 dose, On Sun 6 at 1945, Administer orally with milk or food to minimize GI irritation. Maximum dose of 3200 mg from all sources in 24 hours, STAT methylergonovine (METHERGINE) tablet 0.2 mg 1332 (Given - Provider: Lori Marrero RN)1822 (Given - Provider: Princess Trevizo, KLAUDIA) 0.2 mg, Oral, EVERY 6 HOURS SCHEDULED, F irst dose on Sun09/03/15 at 1400, Until Discontinued, Routine Continuous Medication Order 09/01/2015 09/02/2015 09/03/2015 lactated ringers infusion 1,000 mL 0918 (New Bag - Provider: Sara Wiley, KLAUDIA)1024 (New Bag - Provider: Tom Hinton MD) 1,000 mL, at 100 mL/hr, Intravenous, CON TINUOUS, Starting Sun09/03/15 at 0930, Until Sun09/03/15 at 1438, Day of Surgery (Day of Procedure) lactated ringers infusion 1,000 mL 1520 (New Bag - Provider: Princess Trevizo, KLAUDIA) 1,000 mL, at 100 mL/hr, Intravenous, CON [...] Routine documented in this encounter Care Teams Surgical Assistant Relationship Specialty Start Date End Date Ulysses Reza MD PCP - General 01/18/10 07/20/16 [address] [place] [id number] documented as of this encounter
--- OUTSIDE RECORDS SUMMARY | 2021-09-02 11:10 | XMS_ITS | Encounter Summary ---
:1975 Author Organization [facility] [place] [address] Care Team Providers Name Role Phone Ulysses Reza MD Primary Care Provider Encounter Details Date Type Department Care Team Description 08/27/2015 Hospital Encounter Radiology at [facility] Dipti Hunt, Abnormal findings on antenat al screening of mother; [facility] MD ALVA (advanced maternal age) multigravida 35+, second trimester Drive [facility] [id number] OBSTETRICS & [phone] [place] [address] Social History Tobacco Use Types Packs/Day Years Used Date Never Smoker Sex Assigned at Date Recorded Not on file documented as of this encounter Medications at Time of Discharge Medication Sig Dispensed Refills Start Date End Date PNV95/FERROUS FUMARATE/FA Take by mouth. 0 ( ORAL)Indications: Abnormal multiple marker screen in fetus methylergonovine Take 1 tablet by 3 tablet 0 09/03/2015 (METHERGINE) 0.2 mg Tablet mouth every 6 hours. Next dose at 7:30 PM ondansetron (ZOFRAN) 8 mg 0 01/21/2007 09/02/2015 tablet documented as of this encounter Plan of Treatment Not on filedocumented as of this encounter Procedures Procedure Name Priority Date/Time Associated Diagnosis Comme nts US OB DETAILED Routine 08/27/2015 10:26 Abnormal findings on R esults for this MORPHOLOGY AM EDT screening procedur e are in of mother the results AMA (advanced section. maternal age) multigravida 35+, second trimester documented in this encounter Results [...] 10:35 am) PATIENT INFO: ID #: ? [id number] ?: ??[birth year] (39 yrs) Name: ? CHELLY M ? Visit Date: 08/27/2015 08:50 am ? LOLA PERFORMED BY: Performed By: ? Dennys SANTIAGO, ??Baldo caal Attending: ?Crissy SCHWARTZ, E ? 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 Visualized 3 Vessel View: ?Visualized Diaphragm: [...] small for complete morphological assessment. Procedure Note Franck Woodward MD - 08/27/2015For matting of this note might be different from the original. OBSTETRICS REPORT (Signed Final 016 10:35 am) PATIENT INFO: ID #: [id number] : 75 (39 y rs) Name: CHELLY Carrillo Visit Date: 08/27/2015 0 8:50 am LOLA PERFORMED BY: Performed By: Anne-Marie Noyola RDMS Attending: Franck Woodward MD Referred By: FANNY [facility] SERVICE(S) PROVIDED: [facility] - Detailed Morphology - Genetics - [id number] U[facility]IO - Genetic - Lung Maturity - [id number], [id number] INDICATIONS: Postvice harmony for DS and DAughter [...] Outflow Tract: Visualized Aortic Arch: Visualized Cardiac Fingal: Visualized 3 Vessel View: Visualized Diaphragm: Visualized [...] Franck Woodward MD Electronically Signed Final Report 08/26 10:35 am Dipti Hunt MD IMG US OB ORDERABLES documented in this encounter Visit Diagnoses Diagnosis Abnormal findings on screening of mother Abnormal findings on screening AMA (advanced maternal age) multigravida 35+, second trimester documented in this encounter Care Teams Insulation Packer Relationship Specialty Start Date End Date Ulysses Reza MD PCP - General 01/18/10 07/20/16 [address] [place] [address] documented as of this encounter
--- OUTSIDE RECORDS SUMMARY | 2021-09-02 11:10 | XMS_ITS | Encounter Summary ---
:1975 Author Organization [facility] [place] [address] Care Team Providers Name Role Phone Taniya Wright MD Primary Care Provider Encounter Details Date Type Department Care Team Description 08/28/2007 Orders Only Radiology and Cardiology Apd Conversion, Results Results Provider, [address] [place] [phone] Social History Tobacco Use Types Packs/Day Years Used Date Never Assessed Sex Assigned at Date Recorded Not on file documented as of this encounter Plan of Treatment Not on filedocumented as of this encounter Procedures Procedure Name Priority Date/Time Associated Diagnosis Comme nts TYPE AND SCREEN Routine 08/28/2007 5:00 PM Result s for this ([facility]) EDT procedure a re in the results section. documented in this encounter Results (ABNORMAL) Type and screen ([facility]) (08/28/2007 5:00 PM EDT) [facility] gist Method Time Signature ABO Grouping O (External ABO [facility]) DAY CONVERSION Rh NEGATIVE [facility]IE CAMACHO (External DAY Lab) CONVERSION AB Screen Interp NEGATIVE NEGATIVE [facility]GIE CAMACHO (External DAY Lab) CONVERSION [employer]band [id number] GEORGIE CAMACHO Identification (External DAY Lab) CONVERSION Specimen (Source) Anatomical Collection Method Collection Time Re ceived Time Location / / Volume Laterality 08/28/2007 5:00 PM EDT Results Provider Apd Conversion BLOOD BANK ORDERABL ES Performing Organization Address City/State/ZIP Code Phon e Number [facility] DAY CONVERSION [address] [place], [place] [address] [facility] DAY CONVERSION documented in this encounter Visit Diagnoses Not on filedocumented in this encounter Care Teams Engine Lathe Set Up Operator Tool Relationship Specialty Start Date End Date Taniya Wright MD PCP - General Family Medicine 06/13/17 09/22/20 [address] [place] [id number] documented as of this encounter
--- OUTSIDE RECORDS SUMMARY | 2021-09-02 11:10 | XMS_ITS | Encounter Summary ---
:1975 Author Organization [facility] [place] [address] Care Team Providers Name Role Phone Taniya Wright MD Primary Care Provider Reason for Visit Reason Comments Skin Check FSE Consultation (Routine) - Closed Specialty Diagnoses / Procedures Referred By Contact Refer red To Contact Dermatology Diagnoses Melanocytic nevi, unspecified Changing Nevi w/ preganacy, previous derm evaluation Meera Lopez MD [facility] Dermatology [address] [place] [address] [address] [place] [id number] Referral ID Status Reason Start Date Expiration Date Visits Requ ested Visits Authorized [id number] Closed 04/06/2017 04/06/2018 1 1 Encounter Details Date Type Department Care Team Description 06/13/2017 Office Visit Dermatology at [facility], Multiple benign nevi; Anya SCHWARTZ Hand dermatitis; [address] [place] [address] [facility] [place], [place] [address] Social History Tobacco Use Types Packs/Day Years Used Date Never Smoker Smokeless Tobacco: Never Used Alcohol Use Standard Drinks/Week Comments No 0 (1 standard drink = 0.6 oz pure alcoho l) Sex Assigned at Date Recorded Not on file documented as of this encounter Progress Notes [facility] Arias - 06/13/2017 3:00 PM EDT Images from the original note were not included. DERMATOLOGY - NEW PATIENT NOTE Date of service: 06/13/2017 Kitty Stewart : 1975, 41 y.o. Chief Complaint: Chief Complaint Patient presents with ??? Skin Check FSE HPI: Kitty Stewart is a 41 y.o. female referred by Meera Lopez MD with the following concerns: Here today, accompanied by her and daughter, for a full skin exam and mole check. She reports that several of her moles changed in size and shape during and just after her most recent (noticed about 4 months ago). A couple of spots on her back are raised, catch on things, and can be painful. She would like to discuss removal options. Relevant Skin History: - Okay to leave detailed message with results? Yes, home phone; also okay to speak with ([place]) - Skin cancer (including type): Possibly; had lesion removed from right eyelid years ago (unknown pathology results, per patient) - Skin disease: None Family History: - Melanoma and NMSC: None - Sons have eczema - Family history of thyroid cancer, thyroid disease Relevant Social History: - Occupation: Teacher - , 4 children - Alcohol usage: seldom Meds: Current Outpatient Prescriptions Medication Sig Dispense Refill ??? DOCOSAHEXANOIC ACID (DHA ORAL) Take by mouth. ??? PNV95/FERROUS FUMARATE/FA ( ORAL) Take by mouth. No current facility-administered medications for this visit. Allergies: No Known Allergies Review of Systems: - General: Feels well. - Skin: No other skin concerns. Examination: - Constitutional: Patient was alert, well-appearing and in no noticeable distress. - Skin: Skin examination of the scalp, face, ears, neck, back, chest, axillae, abdomen, right and left upper extremities, right and left lower extremities, hands, feet, and buttocks was normal with theexception of the findings listed below. Genitalia not examined. Diagnosis/Skin findings/Assessment/Plan: 1. Benign-Appearing Nevi - Torso, including lower back, and extremities: Multiple, 0.3-0.5 cm medium-brown, evenly-pigmented macules and papules. All with regular pigment pattern on dermoscopy. No pigmented lesions suspicious for melanoma. - Discussed warning signs for skin cancer, including the ABCDEs of melanoma. Handout given. - Given the number of nevi, recommended full body skin photography. - Counseled monthly self skin exams and photos taken in sections (print 5 x 7 color photo of each and include in plastic sleeves in binder with date taken; keep for 5-10 years) for baseline comparison.If changes develop, contact clinic for rapid evaluation. - Recommended the Mole Mechanic Chief rowena. 2. Hand Dermatitis - Bilateral palms of the hands: Xerotic scale. - Recommended consistent moisturizing with CeraVe or Neutrogena Guyanese formula - Advised to avoid hand washing as much as possible, use ethyl alcohol instead if possible 3. Nevus - Left chest: 4 mm reddish-brown papule with central hyperpigmentation. (See photos below). - Joint decision to monitor clinically rather than excise complete lesion. - Discussed changes (bleeding, pain, change in color or shape) that should prompt re-evaluation.?? RTC: Return to clinic in 2 years for full skin exam, or sooner if needed. Reminder placed in system.Patient instructed to call with questions or concerns. The following photos were obtained with patient consent: Note initiated by IAN Perez. ILucrecia, Clinical Scribe, am documenting this encounter acting as the scribe for and in the presence of Belkis Arias MD. I performed the above scribed service and agree with the accuracy of the documentation in this encounter. Reviewed and signed by Belkis Arias MD Resident in Dermatology [facility] Staff stock roller: Lydia Pratt MD Section of Dermatology [facility] Lydia Pratt MD - 06/13/2017 3:00 PM EDT I was the supervising physician working with dermatology resident Dr. Belkis Arias in the dermatology clinic during this patient visit. The level of Resident supervision for this patient visit was indirect supervision with direct supervision immediately available. (definition: [facility] [place] [place] GM Policy Statement on Graduate Medical Education, Supervision of Graduate Medical Trainees) I was immediately available to Dr. Arias for questions and discussion regarding this visit. I have reviewed her encounter note details and level of service. LYDIA PRATT MD Staff Physician documented in this encounter Plan of Treatment Not on filedocumented as of this encounter Visit Diagnoses Diagnosis Multiple benign nevi Benign neoplasm of skin, site unspecifie d Hand dermatitis Contact dermatitis and other eczema, due to unspecified cause Nevus Benign neoplasm of skin, site unspecifie d documented in this encounter Care Teams Coffee Shop Manager Relationship Specialty Start Date End Date Taniya Wright MD PCP - General Family Medicine 06/13/17 09/22/20 [address] [place] [address] documented as of this encounter
--- OUTSIDE RECORDS SUMMARY | 2021-09-02 11:10 | XMS_ITS | Encounter Summary ---
:1975 Author Organization [facility] [place] [address] Care Team Providers Name Role Phone Taniya Wright MD Primary Care Provider Encounter Details Date Type Department Care Team Description 05/15/2011 Orders Only Radiology and Cardiology Apd Conversion, Results Results Provider, [address] [place] [phone] Social History Tobacco Use Types Packs/Day Years Used Date Never Assessed Sex Assigned at Date Recorded Not on file documented as of this encounter Plan of Treatment Not on filedocumented as of this encounter Procedures Procedure Name Priority Date/Time Associated Diagnosis Comme nts CYTOPATHOLOGY Routine 05/15/2011 Results for th is GYNECOLOGICAL procedure are in the results section . documented in this encounter Results (ABNORMAL) Cytopathology Gynecological (05/15/2011) [facility] Method Time Signature Agency Sales Director Cytology Please see GEORGIE LOPEZ Final Report Georgie SANTANA legacy report (External Lab) Specimen (Source) Anatomical Location Collection Method / Collectio n Time Received Time / Laterality Volume 05/15/2011 Narrative [facility] CAMACHO CONVERSION - 05/23/2011 Please see Georgie Camacho Legacy report Results Provider Apd Conversion PATHOLOGY/CYTOLOGY ORDERABLES Performing Organization Address City/State/ZIP Code Phon e Number [facility]IE CAMACH[facility] CONVERSION [address] [place], [place] [address] GE[facility]GIE CAMACHO CONVERSION documented in this encounter Visit Diagnoses Not on filedocumented in this encounter Care Teams Parent Partner Relationship Specialty Start Date End Date Taniya Wright MD PCP - General Family Medicine 06/13/17 09/22/20 [address] [place] [address] documented as of this encounter
--- OUTSIDE RECORDS SUMMARY | 2021-09-02 11:10 | XMS_ITS | Encounter Summary ---
:1975 Author Organization [facility] [place] [address] Care Team Providers Name Role Phone Ulysses Reza MD Primary Care Provider Encounter Details Date Type Department Care Team Description 04/12/2016 Telephone Obstetrics and Gynecology at [facility] Franck bruce MD [facility] Aruna wills OBSTETRICS & [place] [address] [place] [address] [phone] (Wo rk) Social History Tobacco Use Types Packs/Day Years Used Date Never Smoker Alcohol Use Standard Drinks/Week Comments No 0 (1 standard drink = 0.6 oz pure alcoho l) Sex Assigned at Date Recorded Not on file documented as of this encounter Miscellaneous Notes [facility] - 04/12/2016 4:56 PM EST I spoke with the patient's primary OB provider by phone today, Ivonne Snyder CNM. Ms. 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 Ms. Ingram has previously been tested for CF carrier status, and was found to not be a carrierof the 60 most common cystic fibrosis mutations. There are, however over 1,700 identified mutations associated with CF, so a negative carrier screen does not obviate the chance that a fetus would be affected by CF, it only reduces the chance. If the patient and her partner would like to explore this further, the father of baby could be tested for the most common mutations as well. If he is found to be a carrier of one of the common mutations, then they could consider an expanded panel of CF mutations for the patient. Franck WOODWARD MD Cc: Ivonne Snyder CNM documented in this encounter Plan of Treatment Not on filedocumented as of this encounter Visit Diagnoses Not on filedocumented in this encounter Care Teams Senior Process Analyst Relationship Specialty Start Date End Date Ulysses Reza MD PCP - General 01/18/10 07/20/16 [address] [place] [address] documented as of this encounter
--- NOTE | 2021-09-02 12:56 | DI.RAD_ITS ---
Exam(s) XR FOOT LT COMPLETE EXAM: XR FOOT LT COMPLETE CLINICAL HISTORY: AVA,M21.611. TECHNIQUE: 2D digital imaging was performed. Three views. COMPARISON: No exams were available for comparison FINDINGS: BONES: No acute fracture is present. No bony destructive lesion is seen. Small heel spur. JOINTS: No dislocation present. SOFT TISSUE: Mild swelling adjacent to 1st metatarsal head.. Minimal narrowing of the 1st MTP joint and minimal spurring laterally. IMPRESSION: Small heel spur and mild bunion formation. DATA REPOSITORY: RADIATION DOSE DELIVERED:
--- NOTE | 2021-09-02 12:56 | DI.RAD_ITS ---
Exam(s) XR FOOT RT COMPLETE EXAM: XR FOOT RT COMPLETE CLINICAL HISTORY: AVA,M12.611. TECHNIQUE: 2D digital imaging was performed. Three views. COMPARISON: No exams were available for comparison FINDINGS: BONES: No acute fracture is present. No bony destructive lesion is seen. JOINTS: No dislocation present. First MTP joint space well maintained. SOFT TISSUE: Swelling adjacent to 1st metatarsal head. IMPRESSION: Mild bunion formation. DATA REPOSITORY: RADIATION DOSE DELIVERED:
== END ==
PROVIDERS: PCP Family Medicine; Visit Provider Physician Assistant
DX: M21.611 Bunion of right foot (principal); M77.32 Calcaneal spur, left foot
CPT/HCPCS: 73630

== ENCOUNTER → 2021-09-27 01:49 | Outpatient (CLI) | payer BC, SELFPAY ==
--- NOTE | 2021-09-27 12:00 | DI.MAMMO_ITS ---
Exam(s) MAMMO SCREENING EXAM: MAMMO SCREENING CLINICAL HISTORY: SCREENING, Z12.31 TECHNIQUE: Bilateral full field digital CC and MLO mammographic images were obtained with 3D tomosyn thesis and utilizing computer aided detection (CAD). COMPARISON: None. FINDINGS: Masses/Architectural Distortion: None seen. Microcalcifications: No suspicious pleomorphic-type are seen. Skin Thickening/Nipple Retraction: None. IMPRESSION: 1. No significant interval change with no specific features of malignancy noted. 2. Unless there is more urgent need, screening mammography is recommended, as per [employer] guidelines. BI-RADS Category 1 - Negative Breast Density - Category C - Heterogeneously dense Breast density category C or D implies that the patient has dense breast tissue. Dense breast tissue is very common and is not abnormal but dense breast tissue can make it harder to find cancer on a ma mmogram. Also, dense breast tissue may increase their breast cancer risk. This information about the result of the mammogram report was provided to the patient to raise their awareness. Use this report when you speak with the patient about their risks for breast cancer, which includes their family hist ory. At that time, you may recommend for more screening tests (Ultrasound or MRI) as they might be us eful based on their risk. A negative radiographic report should not delay biopsy if a dominant or clinically suspicious mass is present. Up to ten percent of cancers are not identified on mammography. A negative report may reinforce clinical impression. Adenosis and dense breasts may obscure an underlying neoplasm. False positive reports average 6 to 10%. Patient will receive a letter notifying them of these results.
== END ==
PROVIDERS: PCP Family Medicine; Visit Provider Nurse Practitioner Family
DX: Z12.31 Encounter for screening mammogram for malignant neoplasm of breast (principal)
CPT/HCPCS: 77063; 77067